=== PATIENT | female | born 1990 | race Two or more races ===

== ENCOUNTER 2021-12-23 09:36 | Emergency (ER) | payer MEDICAID, SELFPAY ==
--- NOTE | ~2021-12-23 | US_ITS ---
EXAMINATION: US ABDOMEN COMPLETE CLINICAL INFORMATION: Upper abdominal pain, nausea and vomiting. COMPARISON: None TECHNIQUE: Real-time imaging of the abdominal viscera. FINDINGS: PANCREAS: Normal. ABDOMINAL AORTA: The proximal, mid, and distal segments are normal in caliber. INFERIOR VENA CAVA: Visualized portions are normal. LIVER: Normal. The liver is normal in size. The liver contour is normal. Parenchymal echogenicity is normal. No focal hepatic lesion. There is no intrahepatic biliary duct dilatation seen. GALLBLADDER: Normal. The gallbladder is physiologically distended without evidence of stones, sludge, polyps, wall thickening or pericholecystic fluid. COMMON BILE DUCT: Normal in caliber measuring 0.2 cm in diameter. RIGHT KIDNEY: Normal. No hydronephrosis. No renal calculi or focal parenchymal lesions. The kidney measures 10.4 cm in maximum dimension. LEFT KIDNEY: Normal. No hydronephrosis. No renal calculi or focal parenchymal lesions. The kidney measures 9.1 cm in maximum dimension. SPLEEN: Normal. The spleen measures 9 cm in maximum dimension. FREE FLUID: None. US/US abdomen complete IMPRESSION: Unremarkable exam.
[2021-12-23 09:42] VITALS: BP 124/61; PULSE 100; RESP 16; TEMP 37.2; O2SAT 100; BMI 24.5
--- NOTE | 2021-12-23 10:20 | ED_ITS ---
HPI - Nausea/Vomiting/Diarrhea General Chief complaint: Nausea/Vomiting/Diarrhea Stated complaint: vomiting/diarrhea/weakness Time Seen by Provider: 12/23/21 10:14 Source: patient and family Mode of arrival: ambulatory Limitations: no limitations History of Present Illness HPI Narrative: 31-year-old female with a past medical history of sickle cell anemia presenting to the ED with complaints of epigastric abdominal pain with associated nausea/ vomiting and watery diarrhea for the past few hours started overnight. She reports that yesterday she went to out and ate some nachos and no one else ate the nachos and since them she has not been feeling good. She believes possible food poisoning. She reports associated chills. She is currently on her menstrual. At this time. She denies any measured fevers, dizziness, headaches, neck pain/ stiffness, sore throat, loss of taste or smell, nasal congestion / rhinorrhea, cough, chest pain or shortness of breath, dyspnea on exertion, orthopnea, palpitations, lower extremity edema or calf tenderness, paresthesias, radiation of the abdominal pain, back pain, dysuria, abnormal vaginal discharge, black or bloody stools, mucousy diarrhea, recent antibiotic usage or hospitalization, recent travel or sick contacts or any other symptoms complaints or concerns at this time. MD elicited complaint: nausea, vomiting, diarrhea and abdominal pain Pertinent past history: other ( Sickle cell anemia) Onset (ago): hour(s) ( since overnight) Description of vomiting: food contents, watery and bilious Description of diarrhea: watery Associated nausea: Yes Associated abdominal pain: Yes Location of pain: epigastric Radiation: does not radiate Pain consistency: constant Severity: moderate Quality: cramping Exacerbating factors: none Relieving factors: none Context: possible food poisoning Associated symptoms: fever/chills Related Data Previous Rx's Medication Instructions Recorded dicyclomine 20 mg tablet 20 mg PO BID #14 tab 12/23/21 ondansetron 4 mg disintegrating 4 mg PO Q6-8H PRN #14 tab 12/23/21 tablet Allergies Allergy/AdvReac Type Severity Reaction Status Date / Time No Known Allergies Allergy Verified 12/23/21 09:41 Review of Systems Review of Systems: Constitutional : No Fever, + Chills, No Night Sweats, No Fatigue, No Malaise Cardiovascular : No Chest Pain, No SOB Respiratory : No Cough, No Sputum, No Wheezing, No Dyspnea Gastrointestinal : + Nausea, + Vomiting, + Diarrhea, + abdominal Pain, No Hematochezia, No Melena Genitourinary : No irregular bleeding, No Dysuria, No Urinary Frequency, No Hematuria,No Urinary Incontinence, No Urgency, No Flank Pain Musculoskeletal : No joint pain, No Myalgias, No Joint Swelling Skin : No Skin Lesions, No rash Neuro : No Weakness, No Numbness, No Paresthesias, No Loss of Consciousness, No Dizziness, No Headache Heme/Lymph: No Lymphadenopathy Endocrine : No Temperature Intolerance Yes all other systems are reviewed and are negative Gastrointestinal: Gastrointestinal: Reports nausea PMFSH Past Medical History Attestation statement: The following information was validated with the patient. Medical History Sickle cell anemia Social History Social History Advance Directives: No Patient : No Physical Exam Vital Signs: Vital Signs: Last Vital Signs Temp 98.9 F 12/23/21 09:42 Pulse 100 12/23/21 09:42 Resp 16 12/23/21 09:42 BP 124/61 12/23/21 09:42 Pulse Ox 100 12/23/21 09:42 BMI result Body Mass Index 24.5 vital signs have been reviewed as normal and appeared to be correct. Blood pressure normal. Heart rate normal. Respiration rate normal. Temperature normal. Oxygen saturation normal. Appearance: Alert. Oriented X3. No acute distress. Head: Normal external exam. Normocephalic. Eyes: PERRLA. EOMI. Conjunctiva and sclera normal. Eyelids normal. ENT: Pharynx normal. Uvula midline. Moist mucous membranes. No trismus noted. No drooling noted. No muffled voice noted. Neck: Normal inspection. Neck supple. FROM. No adenopathy. No meningeal signs. CVS: Normal heart rate and rhythm. Heart sound normal. No murmurs noted. Pulses normal throughout. Respiratory: No respiratory distress. Painless inspiration. Breath sounds normal. No wheezes/rales/rhonchi noted. Chest nontender. No accessory muscle usage noted or decreased air movement noted. Abdomen: Soft and mild TTP to Epigastric abdominal area. Nondistended. No guarding. No rigidity. Bowel sounds normal in all 4 quadrants. No distention noted. No organomegaly noted. No visible injury noted. No rebound tenderness. Negative Rovsing sign. Negative obturator's sign. Negative psoas sign. Negative Bryant sign. Back: No CVA tenderness. Full range of motion noted. Skin: Skin warm and dry. Normal skin color. Normal skin turgor. No rashes/lesions/lacerations noted. Extremities: Extremities exhibit normal range of motion. Extremities nontender. Neuro: Oriented X 3. No motor deficit. No sensory deficit. Reflexes normal. Normal steady gait. CN's II-XII intact bilaterally? Course Course Course Narrative: 10:20am - 31-year-old female with a past medical history of sickle cell anemia presenting to the ED with complaints of epigastric abdominal pain with associated nausea/ vomiting and watery diarrhea for the past few hours started overnight. She reports that yesterday she went to out and ate some nachos and no one else ate the nachos and since them she has not been feeling good. She believes possible food poisoning. She reports associated chills. She is currently on her menstrual period at this time. Plan: Labs, UA, UHCG. provide a L of IV fluids, 4 mg of Zofran and 30 mg of IV Toradol an abdominal ultrasound then re-evaluate. Reevaluation(s) Reevaluation #1: - Labs reviewed patient with an elevated white blood cell count at 12,000. - anemia with an H&H of 8.1/27.7 patient reports that she has been as low as 4 and needed blood transfusion when she was in a sickle cell crisis today she denies any chest pain or shortness of breath or any symptoms of sickle cell crisis. - Platelet count 584. otherwise all other labs are within normal limits. - Patient negative for COVID and flu. - Abdominal ultrasound within normal limits no acute processes are noted - Patient was reporting some nausea therefore 10 mg of Reglan will be given due to the Zofran gave her minimal affect. Reports her epigastric pain is completely resolved after the Toradol. - Will attempt a p.o. trial if patient is tolerating p.o. fluids/ solids will DC home with symptomatic treatment for viral syndrome/ gastroenteritis and instructions return if any new or worsening symptoms. Patient understands agrees with this plan. Time: 12:09 [facility] - Nausea/Vomiting/Diarrhea Medical Records Attestation: I reviewed the patient's medical records. Lab Data Attestation: I reviewed the patient's lab results. Result diagrams: 12/23/21 10:36 12/23/21 11:20 Labs: Lab Results 12/23/21 12/23/21 12/23/21 Range/Units 10:28 10:30 10:36 WBC 12.6 H (4.8-10.8) X10*3/uL RBC 4.68 (4.20-5.50) X10*6/uL Hgb 8.1 L (12.0-16.0) g/dl Hct 27.2 L (37.0-47.0) % MCV 58.1 L (80.0-98.0) fL MCH 17.3 L (27.0-33.0) pg MCHC 29.8 L (31.0-35.0) g/dl RDW 17.7 H (11.0-16.0) % Plt Count 584 H (160-400) X10*3/uL MPV 9.6 (9.4-12.3) fL Immature Gran % (Auto) 0.4 (0.0-0.4) % Neut % (Auto) 95.2 H (45-73) % Lymph % (Auto) 2.2 L (20-40) % Spencer % (Auto) 2.0 (2-11) % Eos % (Auto) 0.0 (0-4) % Baso % (Auto) 0.2 (0-2) % Lymph # (Auto) 0.3 L (1.2-4.9) X10*3/uL Spencer # (Auto) 0.3 (0.1-1.2) X10*3/uL Eos # (Auto) 0.0 (0.0-0.4) X10*3/uL Baso # (Auto) 0.0 (0.0-0.2) X10*3/uL Abs Immat Gran (auto) 0.05 H (0.00-0.03) X10*3/uL Absolute Neuts (auto) 12.0 H (2.0-8.3) x10*3/uL Absolute Nucleated RBC 0.000 (0.0-0.012) X10*3/uL Nucleated RBC % (auto) 0.0 (0.0-0.2) /100WBC Smear Tech's Comments VERIFIED PT (9.9-13.0) SEC INR (0.9-1.1) D-Dimer High Sensitivty Sodium (135-145) mmol/L Potassium (3.3-5.1) mmol/L Chloride (96-108) mmol/L Carbon Dioxide (22-29) mmol/L Anion Gap (12-20) BUN (9-16) mg/dL Creatinine (0.5-1.4) mg/dL Estim Creat Clear Calc Estimated GFR Random Glucose (60-115) mg/dL Calcium (8.4-10.2) mg/dL Magnesium (1.6-2.6) mg/dL Total Bilirubin (0.0-1.0) mg/dL AST (5-31) U/L ALT (0-31) U/L Alkaline Phosphatase (39-117) U/L Total Protein (6.5-8.0) g/dL Albumin (3.5-5.0) g/dL Lipase (8-78) U/L Beta HCG, Quant mIU/mL COVID-19 ([facility]) Negative (Negative) COVID-19 Clin Com See Note Influenza Type A ([facility]) Negative (Negative) Influenza Type B ([facility]) Negative (Negative) Influenza A & B Note See Note 12/23/21 12/23/21 Range/Units 10:36 11:20 WBC (4.8-10.8) X10*3/uL RBC (4.20-5.50) X10*6/uL Hgb (12.0-16.0) g/dl Hct (37.0-47.0) % MCV (80.0-98.0) fL MCH (27.0-33.0) pg MCHC (31.0-35.0) g/dl RDW (11.0-16.0) % Plt Count (160-400) X10*3/uL MPV (9.4-12.3) fL Immature Gran % (Auto) (0.0-0.4) % Neut % (Auto) (45-73) % Lymph % (Auto) (20-40) % Spencer % (Auto) (2-11) % Eos % (Auto) (0-4) % Baso % (Auto) (0-2) % Lymph # (Auto) (1.2-4.9) X10*3/uL Spencer # (Auto) (0.1-1.2) X10*3/uL Eos # (Auto) (0.0-0.4) X10*3/uL Baso # (Auto) (0.0-0.2) X10*3/uL Abs Immat Gran (auto) (0.00-0.03) X10*3/uL Absolute Neuts (auto) (2.0-8.3) x10*3/uL Absolute Nucleated RBC (0.0-0.012) X10*3/uL Nucleated RBC % (auto) (0.0-0.2) /100WBC Smear Tech's Comments PT 14.5 H (9.9-13.0) SEC INR 1.3 H (0.9-1.1) D-Dimer High Sensitivty Cancelled Sodium 140 (135-145) mmol/L Potassium 3.7 (3.3-5.1) mmol/L Chloride 108 (96-108) mmol/L Carbon Dioxide 22 (22-29) mmol/L Anion Gap 14 (12-20) BUN 11 (9-16) mg/dL Creatinine 0.71 (0.5-1.4) mg/dL Estim Creat Clear Calc 94.7 Estimated GFR > 60 Random Glucose 114 (60-115) mg/dL Calcium 8.8 (8.4-10.2) mg/dL Magnesium 1.9 (1.6-2.6) mg/dL Total Bilirubin 0.8 (0.0-1.0) mg/dL AST 14 (5-31) U/L ALT 19 (0-31) U/L Alkaline Phosphatase 73 (39-117) U/L Total Protein 7.5 (6.5-8.0) g/dL Albumin 4.2 (3.5-5.0) g/dL Lipase 9 (8-78) U/L Beta HCG, Quant < 2 mIU/mL COVID-19 ([facility]) (Negative) COVID-19 Clin Com Influenza Type A ([facility]) (Negative) Influenza Type B ([facility]) (Negative) Influenza A & B Note Imaging Data Abdominal ultrasound: Attestation: I personally reviewed and interpreted this imaging study as follows: Radiologist's impression: FINDINGS: PANCREAS: Normal. ABDOMINAL AORTA: The proximal, mid, and distal segments are normal in caliber. INFERIOR VENA CAVA: Visualized portions are normal. LIVER: Normal. The liver is normal in size. The liver contour is normal. Parenchymal echogenicity is normal. No focal hepatic lesion. There is no intrahepatic biliary duct dilatation seen. GALLBLADDER: Normal. The gallbladder is physiologically distended without evidence of stones, sludge, polyps, wall thickening or pericholecystic fluid. COMMON BILE DUCT: Normal in caliber measuring 0.2 cm in diameter. RIGHT KIDNEY: Normal. No hydronephrosis. No renal calculi or focal parenchymal lesions. The kidney measures 10.4 cm in maximum dimension. LEFT KIDNEY: Normal. No hydronephrosis. No renal calculi or focal parenchymal lesions. The kidney measures 9.1 cm in maximum dimension. SPLEEN: Normal. The spleen measures 9 cm in maximum dimension. FREE FLUID: None. US/US abdomen complete IMPRESSION: Unremarkable exam. Discharge Plan Discharge Clinical Impression: Nausea vomiting and diarrhea, Abdominal pain, epigastric, Acute viral syndrome Patient Disposition: Home, Self-Care Instructions: Gastroenteritis (ED), Acute Nausea and Vomiting (ED), Acute Diarrhea (ED) Prescriptions: New ondansetron 4 mg tablet,disintegrating 4 mg PO Q6-8H PRN (Reason: nausea and vomiting) Qty: 14 0RF dicyclomine 20 mg tablet 20 mg PO BID Qty: 14 0RF Referrals: Sarah Euceda MD [Primary Care Provider] - 2 days (your pcp) Stand Alone Forms: Work/School Release Print Language: Greek
[2021-12-23 10:43] LABS: Basophils Percent Auto 0.2 % (0-2); Hematocrit 27.2 % (37.0-47.0); Hemoglobin 8.1 g/dl (12.0-16.0); Imm Gran Abs Auto 0.05 X10*3/uL (0.00-0.03); Imm Gran Pct Auto 0.4 % (0.0-0.4); Lymphocytes Absolute Auto 0.3 X10*3/uL (1.2-4.9); Lymphocytes Percent Auto 2.2 % (20-40); MANUAL DIFF FLAG SCAN; Mean Corpuscular HGB Conc 29.8 g/dl (31.0-35.0); Mean Corpuscular Hemoglobin 17.3 pg (27.0-33.0); Mean Platelet Volume 9.6 fL (9.4-12.3); Monocytes Absolute Auto 0.3 X10*3/uL (0.1-1.2); Neutrophils Percent Auto 95.2 % (45-73); Platelet Count 584 X10*3/uL (160-400); Red Blood Count 4.68 X10*6/uL (4.20-5.50); Red Cell Distribution Width 17.7 % (11.0-16.0); SCAN SMEAR FLAG 1; White Blood Count 12.6 X10*3/uL (4.8-10.8)
[2021-12-23] MEDS: ondansetron HCL 4 MG/2 ML VIAL IVPUSH (10:44)
[2021-12-23] MEDS: Ketorolac Tromethamine 30 MG/ML VIAL IVPUSH (10:44)
[2021-12-23 10:46] LABS: Mean Corpuscular Volume 58.1 fL (80.0-98.0)
[2021-12-23] MEDS: 0.9 % Sodium Chloride 1,000 ML 999 ML IVCONT (10:48)
[2021-12-23 10:49] LABS: INTERNATIONAL NORM RATIO 1.3 (0.9-1.1); Prothrombin Time 14.5 SEC (9.9-13.0)
[2021-12-23 10:59] LABS: Influenza A Negative (Negative); Influenza B2 Negative (Negative)
[2021-12-23 11:08] LABS: COVID-19 Test Negative (Negative); IDNOW Serial# 16C4AD1C
[2021-12-23 11:14] LABS: SLIDE REVIEW VERIFIED
[2021-12-23 11:46] LABS: Alanine Aminotransferase 19 U/L (0-31); Albumin Level 4.2 g/dL (3.5-5.0); Alkaline Phosphatase 73 U/L (39-117); Anion Gap 14 (12-20); Aspartate Amino Transferase 14 U/L (5-31); Bilirubin Total 0.8 mg/dL (0.0-1.0); Blood Urea Nitrogen 11 mg/dL (9-16); Calcium 8.8 mg/dL (8.4-10.2); Carbon Dioxide 22 mmol/L (22-29); Chloride 108 mmol/L (96-108); Creatinine Clr Calc Pharmacy 94.7; Estimated Glomerular Filt Rate > 60; Glucose Random 114 mg/dL (60-115); Magnesium 1.9 mg/dL (1.6-2.6); Potassium 3.7 mmol/L (3.3-5.1); Sodium 140 mmol/L (135-145); Total Protein 7.5 g/dL (6.5-8.0)
[2021-12-23 11:52] LABS: HCG Quantitative < 2 mIU/mL
[2021-12-23] MEDS: Metoclopramide HCl 10 MG/2 ML VIAL IVPUSH (12:05)
[2021-12-23 12:37] LABS: Lipase 9 U/L (8-78)
== END 2021-12-23 13:11 | disposition home or self-care (01) ==
PROVIDERS: Physician Assistant Medical; Emergency Provider Emergency Medicine; PCP Internal Medicine
DX: B34.9 Viral infection, unspecified (principal); R11.2 Nausea with vomiting, unspecified; R19.7 Diarrhea, unspecified; R10.13 Epigastric pain; Z20.822 Contact with and (suspected) exposure to COVID-19; Z79.899 Other long term (current) drug therapy
CPT/HCPCS: 76700; 80053; 83690; 83735; 84702; 85025; 85610; 87502; 87635; 96374; 96376; 99284; J1885; J2405; J2765

== ENCOUNTER 2022-12-03 10:28 | Emergency (ER) | payer MEDICAID, SELFPAY ==
[2022-12-03 10:50] VITALS: BP 119/70; PULSE 87; RESP 18; TEMP 36.8; O2SAT 99; BMI 24.5
[2022-12-03 10:58] LABS: MANUAL DIFF FLAG NO
[2022-12-03 10:59] LABS: Basophils Percent Auto 0.1 % (0-2); Eosinophils Percent Auto 0.2 % (0-4); Hematocrit 26.6 % (37.0-47.0); Hemoglobin 7.9 g/dl (12.0-16.0); Imm Gran Abs Auto 0.03 X10*3/uL (0.00-0.03); Imm Gran Pct Auto 0.3 % (0.0-0.4); Lymphocytes Absolute Auto 0.7 X10*3/uL (1.2-4.9); Lymphocytes Percent Auto 7.2 % (20-40); Mean Corpuscular HGB Conc 29.7 g/dl (31.0-35.0); Mean Corpuscular Hemoglobin 16.8 pg (27.0-33.0); Mean Platelet Volume 9.3 fL (9.4-12.3); Monocytes Absolute Auto 0.4 X10*3/uL (0.1-1.2); Monocytes Percent Auto 4.6 % (2-11); Neutrophils Percent Auto 87.6 % (45-73); Platelet Count 568 X10*3/uL (160-400); Red Blood Count 4.69 X10*6/uL (4.20-5.50); Red Cell Distribution Width 18.5 % (11.0-16.0); White Blood Count 9.1 X10*3/uL (4.8-10.8)
[2022-12-03 11:05] LABS: Mean Corpuscular Volume 56.7 fL (80.0-98.0)
[2022-12-03 11:13] LABS: COVID-19 Test Negative (Negative); IDNOW Serial# 16C4AD1C
[2022-12-03 11:25] LABS: HCG Quantitative < 2 mIU/mL
[2022-12-03 11:31] LABS: Alanine Aminotransferase 27 U/L (0-31); Albumin Level 4.4 g/dL (3.5-5.0); Alkaline Phosphatase 82 U/L (39-117); Anion Gap 13 (12-20); Aspartate Amino Transferase 25 U/L (5-31); Bilirubin Total 0.7 mg/dL (0.0-1.0); Blood Urea Nitrogen 12 mg/dL (9-16); Calcium 9.1 mg/dL (8.4-10.2); Carbon Dioxide 22 mmol/L (22-29); Chloride 107 mmol/L (96-108); Creatinine Clr Calc Pharmacy 91.2; Estimated Glomerular Filt Rate > 60; Glucose Random 100 mg/dL (60-115); Potassium 4.1 mmol/L (3.3-5.1); Sodium 138 mmol/L (135-145); Total Protein 7.8 g/dL (6.5-8.0)
--- NOTE | 2022-12-03 14:11 | ED.GENADULT ---
HPI - General Adult General Chief complaint: Abdominal Pain Stated complaint: N/V/D Time Seen by Provider: 12/03/22 14:10 Source: patient Mode of arrival: ambulatory Limitations: no limitations History of Present Illness HPI narrative: Pt is a 32 y/o female with no significant pMHX, cc n/v/d with abd pain that started around 0100 this morning. It was preceded by a headache that has since subsided. She had chills and night sweats that started at 0300 but did not check her temperature at that time. 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 She has not been able to eat or drink anything since this started and is currently on her period. Pt denies sob, chest pain, cough, or blood in stools. Onset (ago): hour(s) (12) Location: abdomen Radiation: non-radiation Severity: moderate Severity scale (1-10): 4 Quality: aching Pain Consistency: constant Relieving factors: none Exacerbating factors: none Associated symptoms: nausea/vomiting Treatments prior to arrival: none Related Data Previous Rx's Medication Instructions Recorded dicyclomine 20 mg tablet 20 mg PO BID abdominal cramping 12/23/21 #14 tabs ondansetron 4 mg disintegrating 4 mg PO Q6-8H PRN nausea and 12/23/21 tablet vomiting #14 tabs cephalexin 500 mg capsule 500 mg PO Q6H 7 days #28 caps 12/03/22 ondansetron 4 mg disintegrating 4 mg PO Q8H 3 days #9 tabs 12/03/22 tablet Allergies Allergy/AdvReac Type Severity Reaction Status Date / Time No Known Allergies Allergy Verified 12/23/21 09:41 Review of Systems Constitutional: Constitutional: Reports no additional constitutional complaints, Reports chills and Denies fever(s) Eyes: Eyes: Reports no additional eye complaints, Denies blurry vision, Denies change in vision, Denies diplopia, Denies eye discharge, Denies loss of vision and Denies eye pain ENT: Denies dizziness Cardiovascular: Cardiovascular: Reports no additional cardiovascular complaints, Denies chest pain, Denies lightheadedness, Denies Loss of Consciousness and Denies dyspnea Respiratory: Respiratory: Reports no additional respiratory complaints and Denies dyspnea Gastrointestinal: Gastrointestinal: Reports no additional gastrointestinal complaints, Reports abdominal pain, Denies melena, Denies hematochezia, Denies change in bowel habits and Denies change in stool character Genitourinary: Genitourinary: Denies hematuria, Denies urinary frequency, Denies dysuria, Denies urinary incontinence, Denies urinary hesitancy and Denies urinary urgency Musculoskeletal: Musculoskeletal: Reports no additional musculoskeletal complaints, Denies numbness and Denies tingling Neurologic: Denies dizziness, Denies loss of vision, Denies numbness and Denies tingling Psychiatric: Psychiatric: Reports no additional psychiatric complaints Endocrine: Endocrine: Reports no additional endocrine complaints Hematologic/Lymphatic: Hematologic/Lymphatic: Reports no additional hematologic/lymphatic complaints Allergic/Immunologic: Allergic/Immunologic: Reports no additional allergic/immunologic complaints [facility] Past Medical History Attestation statement: The following information was validated with the patient. Source: old records reviewed and nursing notes reviewed Medical History Sickle cell anemia Social History Social History Smoked in Last 30 Days: No Use of substances other than those prescribed or required for medical reasons: No Advance Directives: No Advance Directives Information Provided: No Physical Exam ED Vital Signs: Vital Signs - 24 hr 12/03/22 10:50 12/03/22 14:53 12/03/22 16:00 Temperature 98.3 F 98.7 F 98.4 F Pulse Rate 87 82 87 Respiratory Rate 18 16 16 Blood Pressure 119/70 111/58 L 117/65 Pulse Oximetry 99 100 100 Oxygen Delivery Method Room Air Room Air Room Air BMI result Body Mass Index 24.5 Const General: cooperative, no acute distress, alert and awake Nutritional Appearance: well nourished Orientation/consciousness: patient oriented x3 Limitations: no limitations HENMT Head: Yes normal to inspection and Yes atraumatic Ears: hearing grossly normal bilaterally and external ears normal General nose exam: Normal external nose present, no nasal discharge noted and no epistaxis Face and sinus: Yes normal facial exam, No abrasion and No laceration Mouth: Normal oral and palatal mucosa present, no drooling and no muffled voice Eyes General: appearance normal, both eyes and all related structures Periorbital: periorbital findings normal Eyelids: Yes eyelids normal Conjunctivae: conjunctivae normal Pupils: Equal, round and reactive pupils present EOM: EOMs intact bilaterally Neck Neck: Yes normal visual inspection, Yes full ROM and Yes no lymphadenopathy Chest Chest palpation & inspection: normal inspection of the chest Resp Effort & Inspection: normal respiratory effort and able to speak in complete sentences Auscultation: clear to auscultation bilaterally Cardio Rate: regular rate Rhythm: regular rhythm GI Inspection: Yes normal to inspection Palpation (GI): Soft to palpation, not firm, Tenderness to palpation present (GI) in the epigastrum and in the LUQ, no guarding and not rigid Auscultation: normal bowel sounds Neuro General: patient oriented x3 and moves all extremities Cranial nerves: Yes Equal, round and reactive pupils present Cognition (Neuro): normal cognition Motor exam (neuro): 5/5 motor strength present throughout Sensory Exam: Normal double simultaneous stimulation for sensation Coordination: [id number] test normal Extrem General: Yes normal to inspection, Yes full ROM and Yes capillary refill normal Psych Appearance: grossly normal Mental Status: mental status grossly normal Affect: normal affect Attitude: cooperative Thought process: Normal thought process present Thought content: Normal thought content present Insight: Good insight present (Psych) Medications Administered Discontinued Medications Generic Name Dose Route Start Last Admin Trade Name Freq PRN Reason Stop Dose Admin Sodium Chloride 1,000 mls @ 999 mls/hr 12/03/22 14:30 12/03/22 14:45 Ns IV 12/03/22 15:30 999 mls/hr .Q1H1M ANGEL Administration Ondansetron HCl 4 mg 12/03/22 14:24 12/03/22 14:45 Ondansetron Hcl 4 Mg/2 Ml Vial IVPUSH 12/03/22 14:25 4 mg ONCE ONE Administration Medical Decision Making Medical Decision Making [facility] Narrative: Patient is a 32 year old assigned female at with a history no reported medical history presenting to the emergency department today with nausea, vomiting, diarrhea, and abdominal pain. Patient's physical exam showed minimal abdominal pain with palpation but was otherwise unremarkable. Patient's blood work was unremarkable. Patient's urine showed an acute infection. Patient's urine results were incorrectly input in to the computer and lab staff had to read me the results over the phone to include 2+ nitrites, 1+ bacteria, and 25-50 WBC. I explained my physical exam findings as well as all test results to the patient. I answered all questions asked by the patient. Patient received IV fluids and Zofran which she stated helped her symptoms significantly. I stressed the importance of the patient taking her medication as prescribed. I stressed the importance of the patient following up with her primary care provider. I stressed the importance of the patient returning to the emergency department immediately if her symptoms were to worsen or if she were to develop any dizziness, shortness of breath, difficulty breathing, chest pain, blurry vision, loss of vision, nausea, vomiting, abdominal pain, fever, chills, back pain, or any other complaints. Patient verbalized agreement and understanding with this treatment plan and discharge. Differential Diagnosis Differential Diagnoses: The differential diagnosis associated with the presentation includes UTI Lab Data MDM Lab Attestation statement: I reviewed the patient's lab results. 12/03/22 10:54 12/03/22 10:54 Labs: Lab Results 12/03/22 12/03/22 12/03/22 Range/Units 10:54 10:54 10:54 WBC 9.1 (4.8-10.8) X10*3/uL RBC 4.69 (4.20-5.50) X10*6/uL Hgb 7.9 L (12.0-16.0) g/dl Hct 26.6 L (37.0-47.0) % MCV 56.7 L (80.0-98.0) fL MCH 16.8 L (27.0-33.0) pg MCHC 29.7 L (31.0-35.0) g/dl RDW 18.5 H (11.0-16.0) % Plt Count 568 H (160-400) X10*3/uL MPV 9.3 L (9.4-12.3) fL Immature Gran % (Auto) 0.3 (0.0-0.4) % Neut % (Auto) 87.6 H (45-73) % Lymph % (Auto) 7.2 L (20-40) % [place] % (Auto) 4.6 (2-11) % Eos % (Auto) 0.2 (0-4) % Baso % (Auto) 0.1 (0-2) % Lymph # (Auto) 0.7 L (1.2-4.9) X10*3/uL [place] # (Auto) 0.4 (0.1-1.2) X10*3/uL Eos # (Auto) 0.0 (0.0-0.4) X10*3/uL Baso # (Auto) 0.0 (0.0-0.2) X10*3/uL Abs Immat Gran (auto) 0.03 (0.00-0.03) X10*3/uL Absolute Neuts (auto) 8.0 (2.0-8.3) x10*3/uL Absolute Nucleated RBC 0.000 (0.0-0.012) X10*3/uL Nucleated RBC % (auto) 0.0 (0.0-0.2) /100WBC Sodium 138 (135-145) mmol/L Potassium 4.1 (3.3-5.1) mmol/L Chloride 107 (96-108) mmol/L Carbon Dioxide 22 (22-29) mmol/L Anion Gap 13 (12-20) BUN 12 (9-16) mg/dL Creatinine 0.73 (0.5-1.4) mg/dL Estim Creat Clear Calc 91.2 Estimated GFR > 60 Random Glucose 100 (60-115) mg/dL Calcium 9.1 (8.4-10.2) mg/dL Total Bilirubin 0.7 (0.0-1.0) mg/dL AST 25 (5-31) U/L ALT 27 (0-31) U/L Alkaline Phosphatase 82 (39-117) U/L Total Protein 7.8 (6.5-8.0) g/dL Albumin 4.4 (3.5-5.0) g/dL Beta HCG, Quant < 2 mIU/mL Urine Color Urine Appearance Urine pH (5.0-9.0) Ur Specific [place] (1.005-1.025) Urine Protein (Neg-Trace) mg/dL Urine Glucose (UA) (Negative) mg/dL Urine Ketones (Negative) mg/dL Urine Blood (Negative) Urine Nitrite (Negative) Ur Leukocyte Esterase (Negative) Urine RBC (0-2) /HPF Urine WBC (0-5) /HPF Ur Squamous Epith Cells (0-2) /HPF Urine Bacteria (None Seen) Hyaline Casts (0-2) /LPF COVID-19 ([facility]) Negative (Negative) COVID-19 Clin Com See Note 12/03/22 Range/Units 15:17 WBC (4.8-10.8) X10*3/uL RBC (4.20-5.50) X10*6/uL Hgb (12.0-16.0) g/dl Hct (37.0-47.0) % MCV (80.0-98.0) fL MCH (27.0-33.0) pg MCHC (31.0-35.0) g/dl RDW (11.0-16.0) % Plt Count (160-400) X10*3/uL MPV (9.4-12.3) fL Immature Gran % (Auto) (0.0-0.4) % Neut % (Auto) (45-73) % Lymph % (Auto) (20-40) % [place] % (Auto) (2-11) % Eos % (Auto) (0-4) % Baso % (Auto) (0-2) % Lymph # (Auto) (1.2-4.9) X10*3/uL [place] # (Auto) (0.1-1.2) X10*3/uL Eos # (Auto) (0.0-0.4) X10*3/uL Baso # (Auto) (0.0-0.2) X10*3/uL Abs Immat Gran (auto) (0.00-0.03) X10*3/uL Absolute Neuts (auto) (2.0-8.3) x10*3/uL Absolute Nucleated RBC (0.0-0.012) X10*3/uL Nucleated RBC % (auto) (0.0-0.2) /100WBC Sodium (135-145) mmol/L Potassium (3.3-5.1) mmol/L Chloride (96-108) mmol/L Carbon Dioxide (22-29) mmol/L Anion Gap (12-20) BUN (9-16) mg/dL Creatinine (0.5-1.4) mg/dL Estim Creat Clear Calc Estimated GFR Random Glucose (60-115) mg/dL Calcium (8.4-10.2) mg/dL Total Bilirubin (0.0-1.0) mg/dL AST (5-31) U/L ALT (0-31) U/L Alkaline Phosphatase (39-117) U/L Total Protein (6.5-8.0) g/dL Albumin (3.5-5.0) g/dL Beta HCG, Quant mIU/mL Urine Color [place] A Urine Appearance Cloudy Urine pH 5.0 (5.0-9.0) Ur Specific [place] 1.025 (1.005-1.025) Urine Protein 100 (2+) H (Neg-Trace) mg/dL Urine Glucose (UA) Negative (Negative) mg/dL Urine Ketones 15 (Negative) mg/dL Urine Blood Large (3+) H (Negative) Urine Nitrite Negative (Negative) Ur Leukocyte Esterase Moderate (2+) H (Negative) Urine RBC >20 H (0-2) /HPF Urine WBC >50 H (0-5) /HPF Ur Squamous Epith Cells 3-5 (0-2) /HPF Urine Bacteria 1+ (None Seen) Hyaline Casts 0-2 (0-2) /LPF COVID-19 ([facility]ASIA) (Negative) COVID-19 Clin Com Discharge Plan Discharge Clinical Impression: Urinary tract infection Patient Disposition: Home, Self-Care Instructions: Urinary Tract Infection in Women (ED) Additional Instructions: Follow up with your primary care provider. Return to the emergency department immediately if your symptoms worsen or if you develop any dizziness, shortness of breath, difficulty breathing, chest pain, blurry vision, loss of vision, nausea, vomiting, abdominal pain, fever, chills, back pain, or any other complaints. Prescriptions: New cephalexin 500 mg capsule 500 mg PO Q6H 7 Days Qty: 28 0RF ondansetron 4 mg tablet,disintegrating 4 mg PO Q8H 3 Days Qty: 9 0RF No Action ondansetron 4 mg tablet,disintegrating 4 mg PO Q6-8H PRN (Reason: nausea and vomiting) Qty: 14 0RF dicyclomine 20 mg tablet 20 mg PO BID Qty: 14 0RF Referrals: [facility] [Primary Care Provider] - Stand Alone Forms: Work/School Release Interventions: ED Discharge Assessment Last Done: 12/03/22 17:05 Print Language: Cook Islander
[2022-12-03] MEDS: 0.9 % Sodium Chloride 1,000 ML 999 ML IV (14:45)
[2022-12-03] MEDS: ondansetron HCL 4 MG/2 ML VIAL IVPUSH (14:45)
[2022-12-03 14:53] VITALS: BP 111/58; PULSE 82; RESP 16; TEMP 37.1; O2SAT 100
[2022-12-03 15:41] LABS: Bacteria Urine 1+ (None Seen); Hyaline Casts Urine 0-2 /LPF (0-2); RBC Urine >20 /HPF (0-2); WBC Urine >50 /HPF (0-5)
[2022-12-03 16:00] VITALS: BP 117/65; PULSE 87; RESP 16; TEMP 36.9; O2SAT 100
[2022-12-03 16:10] LABS: Appearance Urine Cloudy; Color Urine Orange; Glucose Urine UA Negative (Negative); Leukocyte Esterase Urine Moderate (2+) (Negative); Nitrite Urine Negative (Negative); Specific Gravity - Urine 1.025 (1.005-1.025); UACC Culture Trigger YES; UMIC TRIGGER UACC YES; Urine Blood Large (3+) (Negative); Urine Ketones 15 mg/dL (Negative); Urine Protein 100 (2+) mg/dL (Neg-Trace)
== END 2022-12-03 17:36 | disposition home or self-care (01) ==
PROVIDERS: Emergency Provider Emergency Medicine
DX: N39.0 Urinary tract infection, site not specified (principal); Z20.828 Contact with and (suspected) exposure to other viral communicable diseases; Z20.822 Contact with and (suspected) exposure to COVID-19; Z79.899 Other long term (current) drug therapy
CPT/HCPCS: 80053; 81001; 84702; 85025; 87086; 87635; 96361; 96374; 99284; J2405

== ENCOUNTER 2023-04-28 20:17 | Emergency (ER) | payer MEDICAID, SELFPAY ==
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
[2023-04-28 20:39] VITALS: BP 145/56; PULSE 101; RESP 18; TEMP 36.9; O2SAT 100; BMI 24.6
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
[2023-04-28] MEDS: Ketorolac Tromethamine 15 MG/ML VIAL 30 MG IM (21:36)
== END 2023-04-28 22:38 | disposition home or self-care (01) ==
PROVIDERS: Emergency Provider Internal Medicine
DX: S16.1XXA Strain of muscle, fascia and tendon at neck level, initial encounter (principal); V43.52XA Car driver injured in collision with other type car in traffic accident, initial encounter; Y93.89 Activity, other specified; Y92.414 Local residential or business street as the place of occurrence of the external cause; Y99.9 Unspecified external cause status
CPT/HCPCS: 72040; 73030; 96372; 99283; 99284; J1885

== ENCOUNTER 2023-11-20 11:28 | Emergency (ER) | payer MEDICAID, SELFPAY ==
--- NOTE | ~2023-11-20 | US_ITS ---
EXAMINATION: US PELVIS CLINICAL INFORMATION: Pelvic pain and vaginal bleeding. COMPARISON: Previous pelvic ultrasound most recent January 2017. TECHNIQUE: Ultrasound of the pelvis is performed using both transabdominal and transvaginal transducers along with Doppler. Transvaginal imaging is performed due to inadequate visualization transabdominally. FINDINGS: The uterus is anteverted and measures 10 x 7 x 7 cm. There are at least 5 uterine fibroids. largest fibroids measure 4.8 x 3.6 x 4 cm exophytic to the uterine fundus and 4.2 x 3.6 x 3.4 cm subserosal to the posterior uterine body. The endometrium is normal in thickness measuring 0.5 cm. The right ovary measures 3.8 x 2. 4 x 3.2 cm. There is a 1.3 x 1 x 1 cm hypoechoic lesion in the right ovary. It is uncertain whether this represents a complex cyst or solid lesion. The left ovary measures 3.3 x 2.5 x 2.5 cm. There is a 2.5 x 1.8 x 1.9 cm complex left ovarian cyst with internal echoes. There is no fluid in the pelvis. US/US pelvic and transvaginal IMPRESSION: Enlarged fibroid uterus. Left ovarian complex cyst and question 1 x 1.3 cm right ovarian complex cyst versus solid hypoechoic lesion. Follow-up pelvic ultrasound in several months is recommended.
[2023-11-20 11:55] VITALS: BP 132/73; PULSE 77; RESP 20; TEMP 36.6; O2SAT 100; BMI 24.5
--- NOTE | 2023-11-20 11:57 | ED_ITS ---
HPI - Female Genitourinary General Chief complaint: Vaginal Bleeding Stated complaint: Vaginal bleeding 1 month Time Seen by Provider: 11/20/23 20:39 Source: patient Mode of arrival: ambulatory Limitations: no limitations History of Present Illness HPI Narrative: Patient has sickle cell trait with chronic anemia usually have regular. For last 1 month patient has been having irregular periods off and on changing 4-5 pads a day menstruation started on 10/26 ended on 11/01 started again on 11/09 feels weak and dizzy with lower abdominal cramps not on any BCP Related Data Previous Rx's Medication Instructions Recorded dicyclomine 20 mg tablet 20 mg PO BID abdominal cramping 12/23/21 #14 tabs ondansetron 4 mg disintegrating 4 mg PO Q6-8H PRN nausea and 12/23/21 tablet vomiting #14 tabs cephalexin 500 mg capsule 500 mg PO Q6H 7 days #28 caps 12/03/22 ondansetron 4 mg disintegrating 4 mg PO Q8H 3 days #9 tabs 12/03/22 tablet desogestrel 0.15 mg-ethinyl 1 tab PO DAILY #168 tabs 11/20/23 estradiol 0.03 mg tablet (Pradeep) ferrous sulfate 324 mg (65 mg 324 mg PO DAILY #90 tabs 11/20/23 iron) tablet,delayed release Allergies Allergy/AdvReac Type Severity Reaction Status Date / Time amoxicillin [From Augmentin] Allergy Hives Verified 11/20/23 11:55 clavulanic acid Allergy Hives Verified 11/20/23 11:55 [From Augmentin] Review of Systems 2 Review of Systems: Yes all other systems are reviewed and are negative [facility] Past Medical History Medical History Sickle cell anemia Physical Exam 2 Vital Signs: Vital Signs: Last Vital Signs Temp 98 F 11/20/23 23:11 Pulse 79 11/20/23 23:11 Resp 18 11/20/23 23:11 BP 142/76 H 11/20/23 23:11 Pulse Ox 99 11/20/23 23:11 O2 Del Method Room Air 11/20/23 23:11 BMI result Body Mass Index 24.5 Appearance: Alert. Oriented X3. No acute distress. Eyes: Pallor+ ENT: Pharynx normal. Oral Mucosa moist Neck: Normal inspection. Neck supple. CVS: Normal heart rate and rhythm. Pulses normal. Respiratory: No respiratory distress. Equal air entry bilateral, no wheezing/rales/rhonchi Abdomen: Soft suprapubic tenderness patient on the left side no guarding or rebound tenderness Bowel sounds are present, no mass palpable, no CVA tenderness Skin: Skin warm and dry. Normal skin color. Normal skin turgor. Extremities: No lower extremity edema. No calf tenderness Neuro: Oriented X 3. Course Course Course Narrative: This is a rapid medical exam. Deferred additional HPI, ROS, PE to primary provider. 33 yo female with history of sickle cell anemia here with intermittent vaginal bleeding x 1 month. 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 11/20/23 12:18 11/20/23 12:18 Labs: Lab Results 11/20/23 11/20/23 11/20/23 Range/Units 12:18 14:42 14:43 WBC 7.6 (4.8-10.8) X10*3/uL RBC 4.67 (4.20-5.50) X10*6/uL Hgb 8.5 L (12.0-16.0) g/dl Hct 28.1 L (37.0-47.0) % MCV 60.2 L (80.0-98.0) fL MCH 18.2 L (27.0-33.0) pg MCHC 30.2 L (31.0-35.0) g/dl RDW 18.0 H (11.0-16.0) % Plt Count 581 H (160-400) X10*3/uL MPV 9.1 L (9.4-12.3) fL Immature Gran % (Auto) 0.4 (0.0-0.4) % Neut % (Auto) 69.3 (45-73) % Lymph % (Auto) 24.1 (20-40) % [place] % (Auto) 5.1 (2-11) % Eos % (Auto) 0.7 (0-4) % Baso % (Auto) 0.4 (0-2) % Lymph # (Auto) 1.8 (1.2-4.9) X10*3/uL [place] # (Auto) 0.4 (0.1-1.2) X10*3/uL Eos # (Auto) 0.1 (0.0-0.4) X10*3/uL Baso # (Auto) 0.0 (0.0-0.2) X10*3/uL Abs Immat Gran (auto) 0.03 (0.00-0.03) X10*3/uL Absolute Neuts (auto) 5.3 (2.0-8.3) x10*3/uL Absolute Nucleated RBC 0.000 (0.0-0.012) X10*3/uL Nucleated RBC % (auto) 0.0 (0.0-0.2) /100WBC PT 12.4 (11.1-13.3) SEC INR 1.0 (0.9-1.1) Sodium 140 (135-145) mmol/L Potassium 3.7 (3.3-5.1) mmol/L Chloride 107 (96-108) mmol/L Carbon Dioxide 24 (22-29) mmol/L Anion Gap 13 (12-20) BUN 7 L (9-16) mg/dL Creatinine 0.72 (0.5-1.4) mg/dL Estim Creat Clear Calc 91.5 Estimated GFR > 60 Random Glucose 93 (60-115) mg/dL Calcium 9.5 (8.4-10.2) mg/dL Total Bilirubin 0.3 (0.0-1.0) mg/dL Direct Bilirubin 0.1 (0.0-0.5) mg/dL AST 15 (5-31) U/L ALT 12 (0-31) U/L Alkaline Phosphatase 75 (39-117) U/L Total Protein 8.6 H (6.5-8.0) g/dL Albumin 4.5 (3.5-5.0) g/dL Urine Color Yellow Urine Appearance Clear Urine pH 6.0 (5.0-9.0) Ur Specific [place] 1.020 (1.005-1.025) Urine Protein Negative (Neg-Trace) mg/dL Urine Glucose (UA) Negative (Negative) mg/dL Urine Ketones Negative (Negative) mg/dL Urine Blood Large (3+) H (Negative) Urine Nitrite Negative (Negative) Ur Leukocyte Esterase Small (1+) H (Negative) Urine RBC 11-20 H (0-2) /HPF Urine WBC 6-10 H (0-5) /HPF Ur Squamous Epith Cells 3-5 (0-2) /HPF Urine Bacteria 1+ (None Seen) Hyaline Casts 0-2 (0-2) /LPF Urine Test NEGATIVE (NEGATIVE) Independent Interpretation I performed an independent interpretation of an: Ultrasound Interpretation: Bulky uterine fibroid Radiology Impression Discussion of test interpretation with radiology: I have reviewed the radiologist's reading. Discharge Plan Discharge Clinical Impression: Fibroid, uterine, Menorrhagia Patient Disposition: Home, Self-Care Instructions: Menorrhagia (ED) Additional Instructions: You have uterine fibroids that is likely causing the heavy bleeding Start taking control pills daily Follow up with gynecology Prescriptions: New desogestrel-ethinyl estradiol [Pradeep] 0.15-0.03 mg tablet 1 tab PO DAILY Qty: 168 0RF ferrous sulfate 324 mg (65 mg iron) tablet,delayed release (DR/EC) 324 mg PO DAILY Qty: 90 0RF No Action ondansetron 4 mg tablet,disintegrating 4 mg PO Q6-8H PRN (Reason: nausea and vomiting) Qty: 14 0RF dicyclomine 20 mg tablet 20 mg PO BID Qty: 14 0RF cephalexin 500 mg capsule 500 mg PO Q6H 7 Days Qty: 28 0RF ondansetron 4 mg tablet,disintegrating 4 mg PO Q8H 3 Days Qty: 9 0RF Interventions: ED Discharge Assessment Last Done: 11/20/23 23:13 Discharge Date/Time: 11/20/23 23:13
[2023-11-20 12:23] LABS: MANUAL DIFF FLAG NO
[2023-11-20 12:27] LABS: Basophils Percent Auto 0.4 % (0-2); Eosinophils Absolute Auto 0.1 X10*3/uL (0.0-0.4); Eosinophils Percent Auto 0.7 % (0-4); Hematocrit 28.1 % (37.0-47.0); Hemoglobin 8.5 g/dl (12.0-16.0); Imm Gran Abs Auto 0.03 X10*3/uL (0.00-0.03); Imm Gran Pct Auto 0.4 % (0.0-0.4); Lymphocytes Absolute Auto 1.8 X10*3/uL (1.2-4.9); Lymphocytes Percent Auto 24.1 % (20-40); Mean Corpuscular HGB Conc 30.2 g/dl (31.0-35.0); Mean Corpuscular Hemoglobin 18.2 pg (27.0-33.0); Mean Platelet Volume 9.1 fL (9.4-12.3); Monocytes Absolute Auto 0.4 X10*3/uL (0.1-1.2); Monocytes Percent Auto 5.1 % (2-11); Neutrophils Absolute Auto 5.3 x10*3/uL (2.0-8.3); Neutrophils Percent Auto 69.3 % (45-73); Platelet Count 581 X10*3/uL (160-400); Red Blood Count 4.67 X10*6/uL (4.20-5.50); White Blood Count 7.6 X10*3/uL (4.8-10.8)
[2023-11-20 12:28] LABS: Mean Corpuscular Volume 60.2 fL (80.0-98.0)
[2023-11-20 12:38] LABS: Prothrombin Time 12.4 SEC (11.1-13.3)
[2023-11-20 12:39] LABS: Alanine Aminotransferase 12 U/L (0-31); Albumin Level 4.5 g/dL (3.5-5.0); Alkaline Phosphatase 75 U/L (39-117); Anion Gap 13 (12-20); Aspartate Amino Transferase 15 U/L (5-31); Bilirubin Direct 0.1 mg/dL (0.0-0.5); Bilirubin Total 0.3 mg/dL (0.0-1.0); Blood Urea Nitrogen 7 mg/dL (9-16); Calcium 9.5 mg/dL (8.4-10.2); Carbon Dioxide 24 mmol/L (22-29); Chloride 107 mmol/L (96-108); Creatinine Clr Calc Pharmacy 91.5; Estimated Glomerular Filt Rate > 60; Glucose Random 93 mg/dL (60-115); Potassium 3.7 mmol/L (3.3-5.1); Sodium 140 mmol/L (135-145); Total Protein 8.6 g/dL (6.5-8.0)
[2023-11-20 14:53] LABS: Appearance Urine Clear; Color Urine Yellow; Glucose Urine UA Negative (Negative); Leukocyte Esterase Urine Small (1+) (Negative); Nitrite Urine Negative (Negative); UMIC TRIGGER UACC YES; Urine Blood Large (3+) (Negative); Urine Ketones Negative (Negative); Urine Protein Negative (Neg-Trace)
[2023-11-20 14:55] LABS: UPreg QC Valid YES; Urine Pregnancy NEGATIVE (NEGATIVE)
[2023-11-20 14:58] LABS: Bacteria Urine 1+ (None Seen); Hyaline Casts Urine 0-2 /LPF (0-2); UACC Culture Trigger YES
[2023-11-20 20:29] VITALS: BP 129/78; PULSE 79; RESP 16; TEMP 37.3; O2SAT 100
--- NOTE | 2023-11-20 20:30 | MHC.EDTECH ---
This pct just assumed care of Patient ,Vitals taken and Call lemus within Pt reach .
--- NOTE | 2023-11-20 21:34 | PC.NURSE ---
pt in ultrasound at this time
--- NOTE | 2023-11-20 21:43 | PC.NURSE ---
pt back from US
[2023-11-20 21:48] VITALS: BP 129/78; PULSE 77; RESP 16; TEMP 37; O2SAT 98
[2023-11-20 23:11] VITALS: BP 142/76; PULSE 79; RESP 18; TEMP 36.6; O2SAT 99
== END 2023-11-20 23:13 | disposition home or self-care (01) ==
PROVIDERS: Nurse Practitioner Family; Emergency Provider Internal Medicine
DX: D25.9 Leiomyoma of uterus, unspecified (principal); N92.0 Excessive and frequent menstruation with regular cycle; R42 Dizziness and giddiness; Z79.899 Other long term (current) drug therapy
CPT/HCPCS: 36415; 76830; 76856; 80048; 80076; 81001; 81025; 85025; 85610; 87086; 99284

== ENCOUNTER 2023-11-27 12:33 | Outpatient (REF) | payer MEDICAID, SELFPAY ==
[2023-12-04 11:39] LABS: HPV mRNA E6/E7 rflx Not Detected (Not Detected)
== END 2023-11-27 12:34 | disposition home or self-care (01) ==
LOC: HO.LNP 12:33
PROVIDERS: Visit Provider Obstetrics & Gynecology
DX: N93.9 Abnormal uterine and vaginal bleeding, unspecified (principal); N83.291 Other ovarian cyst, right side; N83.292 Other ovarian cyst, left side; Z32.02 Encounter for pregnancy test, result negative
CPT/HCPCS: 0353U; 36415; 81025; 84146; 84443; 84702; 85027; 87624; 88142; 99202

== ENCOUNTER 2023-11-27 12:33 | Outpatient (AMB) | payer MEDICAID, SELFPAY ==
--- NOTE | 2023-11-27 12:44 | A.OFFVIS_ITS ---
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 The patient went to the ER on 11/20 with heavy vaginal bleeding the following workup was done: H&H 8.02/23.1 Pelvic ultrasound showed the following: The uterus is anteverted and measures 10 x 7 x 7 cm. There are at least 5 uterine fibroids. largest fibroids alfredo sure 4.8 x 3.6 x 4 cm exophytic to the uterine fundus and 4.2 x 3.6 x 3.4 cm subserosal to the posterior uterine body. The endometrium is normal in thickness measuring 0.5 cm. The right ovary measures 3.8 x 2. 4 x 3.2 cm. There is a 1.3 x 1 x 1 cm hypoechoic lesion in the right ovary. It is uncertain whether this represents a complex cyst or solid lesion. The left ovary measures 3.3 x 2.5 x 2.5 cm. There is a 2.5 x 1.8 x 1.9 cm complex left ovarian cyst with internal echoes. There is no fluid in the pelvis Last Pap smear was in 05/17 was negative The patient was discharged on control pill and iron sulfate, since then her bleeding has resolved [facility] Medical History Sickle cell anemia Family History Maternal Aunt Breast cancer Female Reproductive History Menstrual Age of Menarche: 11 Duration of menses: 3-5 days Date of last menstrual period: 11/09/23 control method: pills Total pregnancies: 0 History of STI: No Review of Systems Const All systems reviewed & are unremarkable except as noted in HPI and below Card Reports as per HPI Resp Reports as per HPI GI Reports as per HPI and Reports no additional complaints Reports as per HPI Physical Exam Vital Signs: Last Vital Signs BP 122/78 11/27/23 12:45 BMI result Body Mass Index 24.7 Const General: cooperative, healthy appearing and comfortable Chest Chest palpation & inspection: normal inspection of the chest and normal palpation of entire chest wall Breast/axilla inspection: normal inspection of the breasts and normal inspection of the axillae Breast/axilla palpation: normal palpation of the breasts, normal palpation of the axillae and no axillary lymphadenopathy Resp Effort & Inspection: normal respiratory effort Auscultation: clear to auscultation bilaterally Percussion: percussion normal Cardio Palpation: normal PMI Rate: regular rate Rhythm: regular rhythm Heart sounds: no murmurs and no rubs Peripheral pulses: Peripheral pulses 2+ throughout GI Inspection: Yes normal to inspection Palpation (GI): Soft to palpation, nontender, no guarding, not rigid and No hepatosplenomegaly present Percussion: Yes normal to percussion Auscultation: normal bowel sounds Rectal Exam - Female: deferred General: Yes bladder normal to palpation External Female Exam: No lesion Speculum Exam - Vagina: normal appearance of the vagina, normal palpation, normal vaginal discharge and not erythematous Speculum Exam - Cervix: normal appearance of the cervix and normal palpation Bimanual exam- vagina & uterus: normal bimanual exam, normal palpation, uterine size normal, bladder normal to palpation, consistency normal and normal palpation Bimanual Exam- Adnexa, other: normal adnexae, no masses and no tenderness Results AMB Test Urine AMB Test Urine Negative Last Edit by Geno Butler MA on 11/27/23 12:55 Results Reviewed Results Reviewed: Laboratory Last Values Tst Clinic Negative 11/27/23 12:54 Assessment & Plan Assessment & Plan (1) Abnormal uterine bleeding (AUB): Comment: With anemia Code(s): N93.9 - Abnormal uterine and vaginal bleeding, unspecified Plan: Iron sulfate 325 mg p.o. the IUD Co testing done, GC and chlamydia taken, will order CBC, prolactin, TSH, HCG,. Discussed with the patient the different causes of abnormal bleeding including thyroid disorders, uterine and ovarian pathology. Discussed with the patient the work up including CBC (to r/o anemia), prolactin TSH, hCG. Discussed with the patient the results of the work up done and options of treatment including control pills , Mirena IUD, cyclic Provera. All pros, cons, risks and benefits if each option was discussed with the patient and the patient decided to stay with [facility] so a more detailed discussion re: control pills including mechanism of action, benefits (regular menses, less dysmenorrhea, less risk of ovarian cancer, ...), risks ( DVT, PE, Strokes, [place], ? increased breast ca, others). Instructions were given to schedule a 3 months appointment for blood pressure check (2) Complex cyst of both ovaries: Code(s): N83.291 - Other ovarian cyst, right side; N83.292 - Other ovarian cyst, left side Plan: Discussed with the patient the complex ovarian cyst bilaterally by ultrasound. Discussed with the patient the Ultrasound findings, the main limitation of transvaginal ultrasonography alone as a diagnostic tool to distinguish benign from malignant masses relates to its lack of specificity and low positive predictive value for cancer. The differential diagnosis discussed with the patient includes the following but not limited to: benign and malignant gynecological and non-gynecological causes. Laboratory evaluation include UPT and GC/CT , serum tumor marker CA 125 . Will proceed with MRI of the pelvis with and without contrast and treat accordingly Instructions given the patient to schedule a 2 week follow-up ultrasound appointment. All questions were answered & the patient verbalized understanding and agreed with the plan. (3) Fibroid, uterine: Code(s): D25.9 - Leiomyoma of uterus, unspecified Plan: Discussed with the patient the findings on pelvic ultrasound & the risk of myosarcoma; discussed with the patient the options of treatment including expectant management versus hysterectomy; the pros and cons, risks benefits of each approach were discussed with the patient including the fact that in cases of myosarcoma, surgical treatment can lead to early diagnosis and positively affects the prognosis; after further discussion, the patient decided to proceed with expectant management. Will repeat pelvic ultrasound periodically. Instructions given to patient to call in case any of the following occurs: pressure symptoms, abnormal uterine bleeding, pelvic pain; and to schedule a future office follow-up appointment for reassessment and to order a repeat ultrasound . All questions answered, the patient verbalized understanding and agreed with the plan . Orders: Orders AMB HCG Urine Test Today Z32.02 - Encounter for test, result negative CT NG by PCR Today N93.9 - Abnormal uterine and vaginal bleeding, unspecified Prolactin Today N93.9 - Abnormal uterine and vaginal bleeding, unspecified Pap Smear Today N93.9 - Abnormal uterine and vaginal bleeding, unspecified TSH reflex Free T4 Today N93.9 - Abnormal uterine and vaginal bleeding, unspecified HCG Quantitative Today N93.9 - Abnormal uterine and vaginal bleeding, unspecified Complete Blood Count no Diff Today N93.9 - Abnormal uterine and vaginal bleeding, unspecified MR pelvis wo/w con Today N83.299 - Other ovarian cyst, unspecified side Coding Level of Care Code New Pt Level 3 (22881) Diagnoses Abnormal uterine bleeding (AUB) N93.9 Complex cyst of both ovaries N83.291; N83.292 Fibroid, uterine D25.9
[2023-11-27 12:45] VITALS: BP 122/78; BMI 24.7
== END 2023-11-27 13:27 | disposition home or self-care (01) ==
PROVIDERS: Visit Provider Obstetrics & Gynecology
DX: N93.9 Abnormal uterine and vaginal bleeding, unspecified (principal); N83.291 Other ovarian cyst, right side; N83.292 Other ovarian cyst, left side; D25.9 Leiomyoma of uterus, unspecified; Z32.02 Encounter for pregnancy test, result negative
CPT/HCPCS: 99203

== ENCOUNTER 2023-11-27 13:37 | Outpatient (REF) | payer MEDICAID, SELFPAY ==
[2023-11-27 14:17] LABS: Hematocrit 26.1 % (37.0-47.0); Mean Corpuscular HGB Conc 30.7 g/dl (31.0-35.0); Mean Corpuscular Hemoglobin 18.4 pg (27.0-33.0); Mean Platelet Volume 9.8 fL (9.4-12.3); Platelet Count 556 X10*3/uL (160-400); Red Blood Count 4.35 X10*6/uL (4.20-5.50); Red Cell Distribution Width 19.4 % (11.0-16.0); White Blood Count 8.3 X10*3/uL (4.8-10.8)
[2023-11-27 15:02] LABS: HCG Quantitative < 2 mIU/mL; TSH reflex Free T4 1.23 uIU/mL (0.32-4.0)
[2023-11-28 03:39] LABS: CT PCR NOT DETECTED (Not Detect.); NG PCR NOT DETECTED (Not Detect.)
== END 2023-11-27 13:38 | disposition home or self-care (01) ==
LOC: HO.LAB 13:37
PROVIDERS: Visit Provider Obstetrics & Gynecology
DX: N93.9 Abnormal uterine and vaginal bleeding, unspecified (principal)
CPT/HCPCS: 0353U; 36415; 84146; 84443; 84702; 85027

== ENCOUNTER 2023-12-04 07:36 | Outpatient (REF) | payer MEDICAID, SELFPAY | END 2023-12-04 07:37 | disposition home or self-care (01) | LOC: HO.LAB 07:36 | PROVIDERS: Visit Provider Obstetrics & Gynecology | DX: N93.9 Abnormal uterine and vaginal bleeding, unspecified (principal) | CPT/HCPCS: 36415; 84146 ==

== ENCOUNTER 2023-12-08 14:10 | Outpatient (AMB) | payer MEDICAID, SELFPAY ==
--- NOTE | 2023-12-08 14:10 | MHC.OFFVIS ---
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 Prolactin was 35 on , the patient was given instruction to repeat the test fasting with 3 days of no nipple manipulation, the test was repeated on 12/03 came back at 56. No galactorrhea or blurring of vision or any other concerns except that the patient has frequent headaches. [facility] Medical History Sickle cell anemia Family History Maternal Aunt Breast cancer Female Reproductive History Menstrual Age of Menarche: 11 Review of Systems Const All systems reviewed & are unremarkable except as noted in HPI and below Reports as per HPI and Reports no additional complaints GI Reports no additional complaints Reports no additional complaints Assessment & Plan Assessment & Plan (1) Elevated prolactin level: Code(s): R79.89 - Other specified abnormal findings of blood chemistry Plan: Discussed with the patient the level prolactin on at 35 and on 12/03 at 56. Differential diagnosis discussed with the patient, recommended referral to endocrinology for further management. All questions answered, the patient verbalized understanding. Instructed the patient to call our office back in case a referral appointment is not scheduled, missed or canceled so that we will assist on rescheduling another appointment, the patient verbalized understanding agreed with the plan. I spent a total of 20 minutes reviewing the chart, talking to the patient via video and documenting in the medical record. Orders: Referrals Endocrinology Referral R79.89 - Other specified abnormal findings of blood chemistry Telehealth Telehealth Location of provider rendering services: practice address Location of patient: address on file Patient Identification confirmed using: Name, : Yes Telehealth method: video Patient verbally consented to treatment: Yes Patient verbally consented to billing insurance company: Yes Patient informed of any privacy concerns related to visit: Yes Coding Level of Care Code Tele Est Pt Level 1 (16713) Diagnoses Elevated prolactin level R79.89
== END 2023-12-08 16:25 | disposition home or self-care (01) ==
LOC: HO.HWS 14:10
PROVIDERS: Visit Provider Obstetrics & Gynecology
DX: R79.89 Other specified abnormal findings of blood chemistry (principal)
CPT/HCPCS: 99211

== ENCOUNTER → 2023-12-08 14:10 | Outpatient (BNVA) | payer MEDICAID, SELFPAY | PROVIDERS: Visit Provider Obstetrics & Gynecology ==

== ENCOUNTER 2023-12-30 16:31 | Outpatient (REF) | payer MEDICAID, SELFPAY ==
--- NOTE | ~2023-12-30 | MR_ITS ---
EXAMINATION: MRI PELVIS WITH AND WITHOUT CONTRAST CLINICAL INFORMATION: Reason for Exam N83.299 - Other ovarian cyst, unspecified side COMPARISON: Pelvic ultrasound 11/20/2023 TECHNIQUE: Multiple routine MRI sequences through the pelvis were obtained before and after the uneventful administration of 5.5 mL of Gadavist gadolinium-based IV contrast. FINDINGS: UTERUS: Anteverted uterus is enlarged and measures 11.3 x 10.7 x 8.3 cm ([id number] x anterior-posterior x transverse). Endometrium is uniform and measures 0.5 cm in thickness. Junctional zone is normal in signal and thickness. There are numerous uterine myomas predominantly subserosal or intramural. A 3.4 cm submucosal myoma in the left body of the uterus demonstrates a less than 50% submucosal component. The largest is a 5.8 cm subserosal myoma in the posterior body of the uterus with heterogeneous T2 dark signal and myomas demonstrating predominantly homogeneous enhancement. CERVIX: Nabothian cyst in the cervix. VAGINA: Unremarkable. OVARIES: A 1.6 cm right and 3.1 cm left T2 bright ovarian lesions with some heterogeneous predominantly T2 bright signal compatible with hemorrhagic ovarian cysts, no follow up imaging recommended. KIDNEYS AND VISUALIZED UPPER ABDOMEN: Two normally positioned kidneys are seen. No hydronephrosis. VISUALIZED GI TRACT: Unremarkable. BLADDER: Unremarkable. PELVIC FREE FLUID: Small volume of simple pelvic free fluid. LYMPH NODES: Asymmetric mildly enlarged left inguinal node measuring 1.2 cm short axis, 9:24. OSSEOUS STRUCTURES: No acute or suspicious osseous abnormalities. SOFT TISSUES: There is some asymmetric skin thickening in the soft tissues of the left mons pubis and vulva, 8:28 and 9:28, for which correlation with direct inspection is recommended, and differential considerations could include a focal cellulitis or other dermatologic lesion. MR/MR pelvis wo/w con IMPRESSION: * Bilateral hemorrhagic ovarian cysts corresponding to the sonographic findings, no follow up imaging recommended. * There is some asymmetric skin thickening in the soft tissues of the left mons pubis and vulva, for which correlation with direct inspection is recommended, and differential considerations could include a focal cellulitis or other dermatologic lesion. * Asymmetric mildly enlarged left inguinal node measuring 1.2 cm short axis, for which further workup is recommended on the basis of clinical dermatologic findings in this region, as detailed above, though three-month follow-up ultrasound could be considered. * Enlarged uterus with numerous uterine myomas demonstrating predominantly homogeneous enhancement, the largest measuring 5.8 cm. One myoma measuring 3.4 cm demonstrates a less than 50% submucosal component. * Small volume of simple pelvic free fluid.
[2023-12-30] MEDS: gadobutroL 7.5 ML VIAL IVPUSH (17:43)
== END 2023-12-30 16:32 | disposition home or self-care (01) ==
LOC: HO.MRI 16:31
PROVIDERS: Visit Provider Obstetrics & Gynecology
DX: N83.299 Other ovarian cyst, unspecified side (principal)
CPT/HCPCS: 72197; A9585

== ENCOUNTER 2024-02-03 12:54 | Outpatient (AMB) | payer MEDICAID, SELFPAY ==
[2024-02-03 13:00] VITALS: BP 116/72; BMI 24.6
--- NOTE | 2024-02-03 13:00 | A.OFFVIS_ITS ---
Vital Signs 02/03/24 13:00 Height 5 ft 1 in Weight 130 lb BMI 24.6 BP 116/72 Intake Visit Reasons: 3 month med/MRI follow up Allergies amoxicillin [From Augmentin] Allergy (Verified 02/03/24 13:00) Hives clavulanic acid [From Augmentin] Allergy (Verified 02/03/24 13:00) Hives Is last menstrual period known: Yes Last menstrual period: 01/08/24 HPI Comments Details: Presenting for 3 months ultrasound after starting control pills, doing well with no complaints, no vaginal bleeding. Repeat CBC , CA 125 were not done The following workup was done so far: H&H in the emergency room on was 8/26.1, since then the patient has been on iron sulfate 325 mg p.o. t.i.d. CBC, TSH, hCG negative Prolactin on was 35 repeated on 12/03 was 56, the patient was refer to endocrinology GC/CT negative Co testing negative Pelvic ultrasound on 11/20/2022 showed the following: The uterus is anteverted and measures 10 x 7 x 7 cm. There are at least 5 uterine fibroids. largest fibroids measure 4.8 x 3.6 x 4 cm exophyticto the uterine fundus and 4.2 x 3.6 x 3.4 cm subserosal to the posterior uterine body. The endometrium is normal in thickness measuring 0.5 cm. The right ovary measures 3.8 x 2. 4 x 3.2 cm. There is a 1.3 x 1 x 1 cm hypoechoic lesion in the right ovary. It is uncertain whether this represents a complex cyst or solid lesion. The left ovary measures 3.3 x 2.5 x 2.5 cm. There is a 2.5 x 1.8 x 1.9 cm complex left ovarian cyst with internal echoes. There is no fluid in the pelvis MRI of the pelvis done on 12/30/2023 showed the following: IMPRESSION: * Bilateral hemorrhagic ovarian cysts corresponding to the sonographic findings, no follow up imaging recommended. * There is some asymmetric skin thickening in the soft tissues of the left mons pubis and vulva, for which correlation with direct inspection is recommended, and differential considerations could include a focal cellulitis or other dermatologic lesion. * Asymmetric mildly enlarged left inguinal node measuring 1.2 cm short axis, for which further workup is recommended on the basis of clinical dermatologic findings in this region, as detailed above, though three-month follow-up ultrasound could be considered. * Enlarged uterus with numerous uterine myomas demonstrating predominantly homogeneous enhancement, the largest measuring 5.8 cm. One myoma measuring 3.4 cm demonstrates a less than 50% submucosal component. * Small volume of simple pelvic free fluid. The patient states that her menstrual cycles are regular and light and she gives history of shaving her pubic hair and developing folliculitis on the mons pubis few weeks ago [facility] Medical History Sickle cell anemia Family History Maternal Aunt Breast cancer Female Reproductive History Menstrual Age of Menarche: 11 Date of last menstrual period: 01/08/24 Review of Systems Const All systems reviewed & are unremarkable except as noted in HPI and below Reports as per HPI and Reports no additional complaints GI Reports no additional complaints Reports no additional complaints Physical Exam Skin Other: Folliculitis without evidence of cellulitis or erythema of mons pubis skin Assessment & Plan Assessment & Plan (1) Complex cyst of both ovaries: Code(s): N83.291 - Other ovarian cyst, right side; N83.292 - Other ovarian cyst, left side Category: Medical Plan: Discussed with the patient the finding on MRI showing bilateral hemorrhagic ovarian cyst, recommended repeat ultrasound in 6 weeks ensure resolution of bilateral ovarian cyst. All questions answered, the patient verbalized understanding (2) Abnormal uterine bleeding (AUB): Comment: With anemia Code(s): N93.9 - Abnormal uterine and vaginal bleeding, unspecified Category: Medical Plan: CBC ordered, instructions given the patient to continue iron sulfate 325 mg p.o. q.d. till CBC normalizes and to continue control pills (3) Elevated prolactin level: Code(s): R79.89 - Other specified abnormal findings of blood chemistry Category: Medical Plan: The patient was refer to endocrinology has an appointment on 03/[address] [facility] endocrinology (4) Fibroid, uterine: Code(s): D25.9 - Leiomyoma of uterus, unspecified Category: Medical Plan: Discussed with the patient the findings on pelvic ultrasound & the risk of myosarcoma; discussed with the patient the options of treatment including expectant management versus hysterectomy; the pros and cons, risks benefits of each approach were discussed with the patient including the fact that in cases of myosarcoma, surgical treatment can lead to early diagnosis and positively affects the prognosis; after further discussion, the patient decided to proceed with expectant management. Will repeat pelvic ultrasound periodically. Instructions given to patient to call in case any of the following occurs: pressure symptoms, abnormal uterine bleeding, pelvic pain; and to schedule a 6 weeks ultrasound follow-up appointment . All questions answered, the patient verbalized understanding and agreed with the plan . (5) Folliculitis: Comment: Of mons pubis Code(s): L73.9 - Follicular disorder, unspecified Category: Medical Plan: Discussed with the patient the finding on MRI in the mons pubis area and on physical exam folliculitis, instructions given the patient to stop shaving, and call in case of redness erythema or pain or persistent of her folliculitis then will refer to Dermatology. All questions answered, the patient verbalized understanding Orders: Orders US pelvic and transvaginal Today N83.291 - Other ovarian cyst, right side, N83.292 - Other ovarian cyst, left side, N93.9 - Abnormal uterine and vaginal bleeding, unspecified Complete Blood Count no Diff Today N93.9 - Abnormal uterine and vaginal bleeding, unspecified Coding Level of Care Code Est Pt Level 3 (33621) Diagnoses Complex cyst of both ovaries N83.291; N83.292 Abnormal uterine bleeding (AUB) N93.9 Elevated prolactin level R79.89 Fibroid, uterine D25.9 Folliculitis L73.9
== END 2024-02-03 13:42 | disposition home or self-care (01) ==
PROVIDERS: Visit Provider Obstetrics & Gynecology
DX: N83.291 Other ovarian cyst, right side (principal); N83.292 Other ovarian cyst, left side; N93.9 Abnormal uterine and vaginal bleeding, unspecified; R79.89 Other specified abnormal findings of blood chemistry; D25.9 Leiomyoma of uterus, unspecified; L73.9 Follicular disorder, unspecified
CPT/HCPCS: 99213

== ENCOUNTER 2024-02-03 12:54 | Outpatient (REF) | payer MEDICAID, SELFPAY ==
[2024-02-03 13:53] LABS: Hematocrit 30.9 % (37.0-47.0); Hemoglobin 10.3 g/dl (12.0-16.0); Mean Corpuscular HGB Conc 33.3 g/dl (31.0-35.0); Mean Corpuscular Hemoglobin 23.5 pg (27.0-33.0); Mean Corpuscular Volume 70.5 fL (80.0-98.0); Mean Platelet Volume 9.9 fL (9.4-12.3); Platelet Count 451 X10*3/uL (160-400); Red Blood Count 4.38 X10*6/uL (4.20-5.50); Red Cell Distribution Width 21.2 % (11.0-16.0); White Blood Count 6.1 X10*3/uL (4.8-10.8)
== END 2024-02-03 12:55 | disposition home or self-care (01) ==
LOC: HO.LAB 12:54
PROVIDERS: Visit Provider Obstetrics & Gynecology
DX: N93.9 Abnormal uterine and vaginal bleeding, unspecified (principal); N83.291 Other ovarian cyst, right side; N83.292 Other ovarian cyst, left side; R79.89 Other specified abnormal findings of blood chemistry; D25.9 Leiomyoma of uterus, unspecified; L73.9 Follicular disorder, unspecified
CPT/HCPCS: 36415; 85027; 99212

== ENCOUNTER 2024-03-16 10:55 | Outpatient (REF) | payer MEDICAID, SELFPAY ==
--- NOTE | ~2024-03-16 | US_ITS ---
EXAMINATION: US PELVIS CLINICAL INFORMATION: Complex cysts of both ovaries, abnormal uterine bleeding, last menstrual period March 08, 2024. COMPARISON: MR pelvis December 30, 2023, pelvic ultrasound November 20, 2023. TECHNIQUE: Ultrasound of the pelvis is performed using both transabdominal and transvaginal transducers along with Doppler. Transvaginal imaging is performed due to inadequate visualization transabdominally. FINDINGS: Uterus is anteverted and measures 10.4 x 8.6 x 7.2 cm, volume 337.2 mL. Endometrial thickness is 4 mm. Limited visualization of endometrium due to uterine fibroids. A 5.4 x 4.6 x 4.5 cm fibroid, previously 4.8 x 3.6 x 4.1 cm on 11/20/2023 ultrasound. A 1.4 x 1.3 x 1.3 cm seen only on transvaginal ultrasound images, previously 1.3 x 1.0 x 1.5 cm. A 3.8 x 4.4 x 3.6 cm fibroid, previously 3.2 x 3.2 x 2.0 cm. A 3.7 x 3.8 x 4.4 cm fibroid seen only on transabdominal ultrasound images, previously 3.2 x 3.2 x 3.0 cm. Limited visualization on transvaginal ultrasound images due to multiple large fibroids and bowel gas. Right ovary measures 3.3 x 2.9 x 1.6 cm, volume 8.2 mL. Small amount of free fluid adjacent to the right ovary. Previously identified right ovarian lesion is not visualized today. Right ovary is grossly unremarkable, although visualization is limited due to bowel gas. Left ovary measures 3.2 x 2.7 x 2.5 cm, volume 12.1 mL. Left ovarian 1.7 x 1.6 x 1.7 cm complex cyst with multiple septations and internal echoes, previously measuring 2.5 x 1.8 x 1.9 cm on ultrasound of 11/20/2023. Previous MR demonstrated a 3.1 cm left ovarian cyst felt to be a hemorrhagic cyst. US/US pelvic and transvaginal IMPRESSION: 1. Enlarged, fibroid uterus. 2. Endometrial thickness 4 mm. Limited visualization of endometrium due to multiple fibroids. Correlation with menstrual history and clinical exam recommended to determine further management. 3. Left ovarian 1.7 cm complex cyst previously measured 2.5 cm on 11/20/2023. Previous MR demonstrated a 3.1 cm left ovarian cyst felt to represent a hemorrhagic cyst. There is no specific indication for additional imaging at this time.
== END 2024-03-16 10:56 | disposition home or self-care (01) ==
LOC: HO.US 10:55
PROVIDERS: Visit Provider Obstetrics & Gynecology
DX: N93.9 Abnormal uterine and vaginal bleeding, unspecified (principal); N83.291 Other ovarian cyst, right side; N83.292 Other ovarian cyst, left side
CPT/HCPCS: 76830; 76856

== ENCOUNTER 2024-05-10 11:50 | Outpatient (AMB) | payer MEDICAID, SELFPAY ==
[2024-05-10 11:55] VITALS: BMI 24.2
--- NOTE | 2024-05-10 11:55 | A.OFFVIS_ITS ---
Vital Signs 05/10/24 11:55 Height 5 ft 1 in Weight 127 lb 13.89 oz BMI 24.2 Intake Visit Reasons: Ultrasound results/ DO NOT RS Allergies amoxicillin [From Augmentin] Allergy (Verified 02/03/24 13:00) Hives clavulanic acid [From Augmentin] Allergy (Verified 02/03/24 13:00) Hives HPI Comments Details: Presenting for follow-up ultrasound regarding left complex ovarian cyst was seen on ultrasound in 11/22 followed by pelvic MRI which was consistent with hemorrhagic ovarian cyst. Repeat ultrasound showed the following: Uterus is anteverted and measures 10.4 x 8.6 x 7.2 cm, volume 337.2 mL. Endometrial thickness is 4 mm. Limited visualization of endometrium due to uterine fibroids. A 5.4 x 4.6 x 4.5 cm fibroid, previously 4.8 x 3.6 x 4.1 cm on 11/20/2023 ultrasound. A 1.4 x 1.3 x 1.3 cm seen only on transvaginal ultrasound images, previously 1.3 x 1.0 x 1.5 cm. A 3.8 x 4.4 x 3.6 cm fibroid, previously 3.2 x 3.2 x 2.0 cm. A 3.7 x 3.8 x 4.4 cm fibroid seen only on transabdominal ultrasound images, previously 3.2 x 3.2 x 3.0 cm. Limited visualization on transvaginal ultrasound images due to multiple large fibroids and bowel gas. Right ovary measures 3.3 x 2.9 x 1.6 cm, volume 8.2 mL. Small amount of free fluid adjacent to the right ovary. Previously identified right ovarian lesion is not visualized today. Right ovary is grossly unremarkable, although visualization is limited due to bowel gas. Left ovary measures 3.2 x 2.7 x 2.5 cm, volume 12.1 mL. Left ovarian 1.7 x 1.6 x 1.7 cm complex cyst with multiple septations and internal echoes, previously measuring 2.5 x 1.8 x 1.9 cm on ultrasound of 11/20/2023. Previous MR demonstrated a 3.1 cm left ovarian cyst felt to be a hemorrhagic cyst. The patient is doing well with no complaints on control pills menstrual cycles are regular and light and non crampy, no pelvic pain pressure or bulk symptoms. [facility] Medical History Sickle cell anemia Family History Maternal Aunt Breast cancer Female Reproductive History Menstrual Age of Menarche: 11 Review of Systems Const All systems reviewed & are unremarkable except as noted in HPI and below Reports as per HPI and Reports no additional complaints GI Reports no additional complaints Reports no additional complaints Physical Exam Vital Signs: BMI result Body Mass Index 24.2 Assessment & Plan Assessment & Plan (1) Fibroid, uterine: Code(s): D25.9 - Leiomyoma of uterus, unspecified Category: Medical Plan: Discussed with the patient the findings on pelvic ultrasound & the risk of myosarcoma; discussed with the patient the options of treatment including expectant management versus hysterectomy; the pros and cons, risks benefits of each approach were discussed with the patient including the fact that in cases of myosarcoma, surgical treatment can lead to early diagnosis and positively affects the prognosis; after further discussion, the patient decided to proceed with expectant management. Will repeat pelvic ultrasound periodically. Instructions given to patient to call in case any of the following occurs: pressure symptoms, abnormal uterine bleeding, pelvic pain; and to schedule a 3 months pelvic ultrasound and a follow-up appointment . All questions answered, the patient verbalized understanding and agreed with the plan . (2) Complex cyst of both ovaries: Code(s): N83.291 - Other ovarian cyst, right side; N83.292 - Other ovarian cyst, left side Category: Medical Plan: Discussed with the patient the complex ovarian cyst by ultrasound previously seen by MRI consistent with a hemorrhagic cyst and 3.1 cm in size. Discussed with the patient the Ultrasound findings, the main limitation of transvaginal ultrasonography and MRI as a diagnostic tool to distinguish benign from malignant masses relates to its lack of specificity and low positive predictive value for cancer. The differential diagnosis discussed with the patient includes the following but not limited to: benign and malignant gynecological and non-gynecological causes. Laboratory evaluation include UPT and GC/CT , serum tumor marker CA 125 . Discussed with the patient options of treatment including laparoscopy ovarian cystectomy/oophorectomy vs. expectant management with repeat US in repeating pelvic US in 12 weeks from previous US. If the ovarian complex cyst is persistent larger and / or more complex looking will refer to gynecologic Oncology. All pros, cons, risks and benefits of each approach were discussed with the patient including but not limited to a delay in the diagnosis and treatment of ovarian cancer affecting the prognosis; The patient decided to go ahead with expectant management. Instructions given the patient to schedule a 3 months follow-up ultrasound appointment. All questions were answered & the patient verbalized understanding and agreed with the plan. Orders: Orders US pelvic and transvaginal 3 Months D25.9 - Leiomyoma of uterus, unspecified, N83.291 - Other ovarian cyst, right side, N83.292 - Other ovarian cyst, left side, N83.299 - Other ovarian cyst, unspecified side Medications: Refilled desogestrel-ethinyl estradiol 0.15-0.03 mg (Pradeep) 1 tab PO DAILY 84 tabs 1RF Coding Level of Care Code Est Pt Level 3 (79468) Diagnoses Fibroid, uterine D25.9 Complex cyst of both ovaries N83.291; N83.292
== END 2024-05-10 12:37 | disposition home or self-care (01) ==
PROVIDERS: Visit Provider Obstetrics & Gynecology
DX: D25.9 Leiomyoma of uterus, unspecified (principal); N83.291 Other ovarian cyst, right side; N83.292 Other ovarian cyst, left side
CPT/HCPCS: 99213

== ENCOUNTER → 2024-05-10 11:50 | Outpatient (BNVA) | payer MEDICAID, SELFPAY | PROVIDERS: Visit Provider Obstetrics & Gynecology | DX: N83.291 Other ovarian cyst, right side (principal); N83.292 Other ovarian cyst, left side; D25.9 Leiomyoma of uterus, unspecified | CPT/HCPCS: 99212 ==

== ENCOUNTER 2024-08-10 16:16 | Outpatient (REF) | payer MEDICAID, SELFPAY | END 2024-08-10 16:17 | disposition home or self-care (01) | LOC: HO.US 16:16 | PROVIDERS: PCP Physician Assistant; Visit Provider Obstetrics & Gynecology | DX: D25.9 Leiomyoma of uterus, unspecified (principal); N83.292 Other ovarian cyst, left side; N83.291 Other ovarian cyst, right side | CPT/HCPCS: 76830; 76856 ==

== ENCOUNTER 2024-10-28 15:29 | Outpatient (AMB) | payer MEDICAID, SELFPAY ==
--- NOTE | 2024-10-28 15:37 | A.OFFVIS_ITS ---
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 The patient is doing well with no complaints no abnormal uterine bleeding, pelvic pressure or pain. Pelvic ultrasound done recently showed the following: Uterus: The uterus is anteverted and measures 13.0 x 6.0 x 4.7 cm for a volume of 192 cc. The double wall endometrial thickness is 9 mm. Some fluid is seen in the endometrial canal. Multiple fibroids are present with the largest 3 ranging in size from 3.7 cm to 4.4 cm not significantly changed from prior. Adnexa: Both ovaries are visualized. There is normal color flow to the adnexa. There is no ovarian torsion. There is no pelvic ascites or fluid collection. Right ovary measures 2.8 x 2.6 x 2.1 cm for a volume of 8 cc and contains a 1.6 cm cyst. Left ovary measures 2.4 x 2.2 x 2.7 cm and contains a 1.7 cm cyst PFSH Medical History Sickle cell anemia Family History Maternal Aunt Breast cancer Female Reproductive History Menstrual Age of Menarche: 11 Review of Systems Const All systems reviewed & are unremarkable except as noted in HPI and below Reports as per HPI and Reports no additional complaints GI Reports no additional complaints Reports no additional complaints Assessment & Plan Assessment & Plan (1) Fibroid, uterine: Code(s): D25.9 - Leiomyoma of uterus, unspecified Category: Medical Plan: Discussed with the patient the findings on pelvic ultrasound & the risk of myosarcoma; discussed with the patient the options of treatment including expectant management versus hysterectomy; the pros and cons, risks benefits of each approach were discussed with the patient including the fact that in cases of myosarcoma, surgical treatment can lead to early diagnosis and positively affects the prognosis; after further discussion, the patient decided to proceed with expectant management. Will repeat pelvic ultrasound periodically. Instructions given to patient to call in case any of the following occurs: pressure symptoms, abnormal uterine bleeding, pelvic pain; and to schedule a 12 months pelvic ultrasound (order placed) and a follow-up appointment . All questions answered, the patient verbalized understanding and agreed with the plan . Orders: Orders US pelvic and transvaginal 1 Year D25.9 - Leiomyoma of uterus, unspecified Coding Level of Care Code Est Pt Level 3 (14155) Diagnoses Fibroid, uterine D25.9
--- OUTSIDE RECORDS SUMMARY | 2024-10-28 19:15 | XMS_ITS | Clinical Summary ---
Author Organization [facility] Address [address] [place] [address] Care Team Providers Care Certified Legal Secretary Specialist Name Role Phone Mamta Reid Primary Care Provider [phone] Source Comments PLEASE NOTE, if this patient is a minor, it may be UNLAWFUL to discuss sensitive information that is contained in these records (such as FAMILY PLANNING, MENTAL HEALTH or SUBSTANCE ABUSE) with the minor patient's parent or other person without the patient's specific authorization.[facility] Allergies Active Allergy Reactions Criticality Noted Date Comments Amoxicillin Hives 01/02/2024 Medications FEROSUL 325 mg (65 mg iron) tabletIndication s:Iron deficiency anemia, unspecified iron deficiency anemia type Take 1 Tablet by mouth once daily 90 Tablet 04/15/2024 Active JULEBER 0.15-0.03 mg tabletIndication s:Medication refill Take 1 Tablet by mouth once daily 28 Tablet 2 04/23/2024 Active polyethylene glycol, PEG, 3350 (GLYCOLAX) 17 gram/dose powderIndication s:Iron deficiency anemia, unspecified iron deficiency anemia type Take 17 g by mouth once daily 510 g 1 07/21/2024 Active Active Problems Problem Noted Date Diagnosed Date Iron deficiency anemia 04/15/2024 Microcytic anemia 04/02/2024 Idiopathic scoliosis 01/02/2024 Overview (01/02/2024): Small degree. No prior surgery. Sickle cell disease with crisis ([facility] 2023 Overview (01/02/2024): Has blood transfusion 10-11 years ago Uterine fibroid 01/02/2024 Encounters Date Type Department Care Team Description 08/18/2024 4:20 PM EST Office Visit [facility] [place] [address] Ankit Cruz PA-C Iron deficiency anemia, unspecified iron deficiency anemia type (Primary Dx) 08/18/2024 Travel from Last 3 Months Immunizations Name Administration Dates Next Due MMR (MMR II/Priorix) 02/06/2016 TDAP 02/06/2016 Varicella, Live Vaccine 02/06/2016 Family History Medical History Relation Name Comments Heart attack Father Stroke Father Breast cancer Maternal Aunt Relation Name Status Comments Father Alive Maternal Aunt Mother Alive Social History Tobacco Use Types Packs/Day Years Used Date Smoking Tobacco: Never Smokeless Tobacco: Never Tobacco Cessation:Counseling Given: Not Answered Alcohol Use Standard Drinks/Week Comments Yes 0 (1 standard drink = 0.6 oz pur e alcohol) Rare Social Connections Answer Date Recorded Connectedness 0 06/08/2024 Financial Resource Strain Answer Date R ecorded Financial Resource Strain 0 2023 Stress Answer Date Recorded Stress 0 11/21/2023 Physical Activity Answer Date Recorded Physical Activity 0 11/21/2023 Food Insecurity Answer Date Recorded Food 0 06/24/2024 Transportation Needs Answer Date Record ed Transportation 0 11/21/2023 Housing Stability Answer Date Recorded Housing 0 11/21/2023 Safety and Environment Answer Date Satnam rded Safety 1 01/02/2024 Utilities Answer Date Recorded Utilities 0 11/21/2023 Employment Answer Date Recorded Stress 0 01/02/2024 Comments No Sex and Gender Information Value Date Recorded Sex Assigned at Female 01/20/2024 4:36 AM PDT Legal Sex Female 12:55 PM PST Gender Identity Female 01/20/2024 4:36 AM PDT Sexual Orientation Straight 01/20/2024 4: 36 AM PDT Last Filed Vital Signs Vital Sign Reading Time Taken Comments Blood Pressure 116/78 08/18/2024 4:18 PM EST Pulse 89 08/18/2024 4:18 PM EST Temperature 36.9 ??C (98.5 ??F) 08/18/2024 4:18 PM ES T Respiratory Rate 18 08/18/2024 4:18 PM EST Oxygen Saturation 99% 08/18/2024 4:18 PM EST Inhaled Oxygen Concentration - - Weight 59 kg (130 lb) 08/18/2024 4:18 PM EST Height 154.9 cm (5' 1 ) 08/18/2024 4:18 PM EST Body Mass Index 24.56 08/18/2024 4:18 PM EST Plan of Treatment Health Maintenance Due Date Last Done Comments HPV Screening 1990 Pap Smear 2011 Alcohol and Drug Screen 09/29/2024 03/24/2024 Depression Annual Screen 09/29/2024 03/24/2024 Imm-Hepatitis B (1 of 3 - 19+ 3-dose series) 10/21/2024 Postponed from 2009 (Patient postponement) Imm-Pneumococcal (1 of 2 - PCV) 10/21/2024 Postponed from 1996 (Patient postponement) Relationship Safety Screening/Counseling 01/01/2025 01/02/2024 [id number] () 01/20/2025 Postponed from 05/30/2024 (Patient postponement) Annual Preventive Care Visit 03/24/2025 03/24/2024 Imm-Influenza (#1) 2025 Postponed from 05/30/2024 (Patient postponement) Tobacco Screening 08/18/2025 08/18/2024 Hypertension Screening (#1) 08/18/2027 Cervical Cancer Screening 11/26/2028 Pap + HPV 11/26/2028 11/27/2023 Imm-DTaP/Tdap/Td (3 - Td or Tdap) 03/31/2029 03/31/2019, 02/06/2016 HIV Screening Completed 03/24/2024 Hepatitis C Screening Completed 03/24/2024 Cervical Ablation/Cold-Knife Conization Discontinued Cervical Cryotherapy Discontinued Colposcopy Discontinued Endometrial Biopsy Discontinued Excision/Leep Discontinued HPV Genotyping Discontinued Vaginal Pap Discontinued Vulvoscopy Discontinued Procedures Procedure Name Priority Date/Time Associated Diagnosis Comments IRON, TIBC, FERRITIN PANEL Routine 08/18/2024 4:30 PM EST Iron deficiency anemia, unspecified iron deficiency anemia type BLOOD COUNT COMPLETE AUTO&AUTO DIFRNTL WBC Routine 08/18/2024 4:30 PM EST Iron deficiency anemia, unspecified iron deficiency anemia type IMAGING SCANNED DOCUMENT 08/10/2024 3:00 AM EST IMAGING SCANNED DOCUMENT 08/10/2024 3:00 AM EST HIV 1/2 AG & AB W/RFLX (4TH GEN) Routine 03/24/2024 4:02 PM EDT Screening due HEPATITIS C AB W/RFLX HCV RNA, QT, RT PCR Routine 03/24/2024 4:02 PM EDT Screening due from Last 3 Months or Most Recently Relevant to Health Maintenance Results * (ABNORMAL) IRON, TIBC, FERRITIN PANEL (08/18/2024 4:30 PM EST) Pathologist [facility] FERRITIN 9(L) 16 - 154 ng/mL [facility] IRON, TOTAL 84 40 - 190 mcg/dL [facility] IRON BINDING CAPACITY 553(H) 250 - 450 mcg/dL (calc) [facility] % SATURATION 15(L) 16 - 45 % (calc) [facility] Blood Blood / Unknown 08/18/2024 4 :30 PM EST 08/18/2024 4:30 PM EST Ankit Cruz PA-C LAB - BLOOD DRAW Final Resul t [facility] [address] [address], Crunched [address] [phone] * (ABNORMAL) BLOOD COUNT COMPLETE AUTO&AUTO DIFRNTL WBC (08/18/2024 4:30 PM EST) Pathologist [facility] WHITE BLOOD CELL COUNT 7.1 3.8 - 10.8 Thousand/ uL [facility] RED BLOOD CELL COUNT 4.40 3.80 - 5.10 Million/u L [facility] HEMOGLOBIN 10.7(L) 11.7 - 15.5 g/dL [facility] HEMATOCRIT 34.6(L) 35.0 - 45.0 % [facility] MCV 78.6(L) 80.0 - 100.0 fL [facility] MCH 24.3(L) 27.0 - 33.0 pg [facility] MCHC 30.9(L) 32.0 - 36.0 g/dL [facility] Comment: For adults, a slight decrease in the calculated MCHC value (in the range of 30 to 32 g/dL) is most likely not clinically significant; however, it should be interpreted with caution in correlation with other red cell parameters and the patient's clinical condition. RDW 16.3(H) 11.0 - 15.0 % [facility] PLATELET COUNT 481(H) 140 - 400 Thousand/ uL [facility] MPV 11.3 7.5 - 12.5 fL [facility] ABSOLUTE NEUTROPHILS 4,374 1,500 - 7,800 cells/uL [facility] ABSOLUTE LYMPHOCYTES 2,244 850 - 3,900 cells/uL [facility] ABSOLUTE MONOCYTES 412 200 - 950 cells/uL [facility] ABSOLUTE EOSINOPHILS 43 15 - 500 cells/uL [facility] ABSOLUTE BASOPHILS 28 0 - 200 cells/uL [facility] NEUTROPHILS PCT 61.6 % [facility] [employer] LYMPHOCYTES 31.6 % [facility] MONOCYTES 5.8 % [facility] [employer] [facility] EOSINOPHILS 0.6 % [facility] BASOPHILS 0.4 % [facility] Blood Blood / Unknown 08/18/2024 4 :30 PM EST 08/18/2024 4:30 PM EST us Ankit Cruz PA-C LAB - BLOOD DRAW Edited Resu lt - Final [facility] [address] [address], [facility] [address] [place] [phone] * IMAGING SCANNED DOCUMENT (08/10/2024 3:00 AM EST) Only the most recent of2 resultswithin the time period is included. 08/10/2024 3:00 AM EST us Ankit Cruz PA-C SCAN IMAGING Final Result * HEPATITIS C AB W/RFLX HCV RNA, QT, RT PCR (03/24/2024 4:02 PM EDT) HEPATITIS C ANTIBODY NON-REACT ROLDAN NON-REACT ROLDAN Crunched [facility] Comment: HCV antibody was non-reactive. There is no laboratory evidence of HCV infection. In most cases, no further action is required. However, if recent HCV exposure is suspected, a test for HCV RNA (test code 49715) is suggested. For additional information please refer to http://[employer]/faq/WZK24m4 (This link is being provided for informational/ educational purposes only.) Blood Blood / Unknown 03/24/2024 4 :02 PM EDT 03/24/2024 4:03 PM EDT Mamta OSEI LAB - BLOOD DRAW Final Result [facility]ched [address] [address], Crunched [address] [phone] * HIV 1/2 AG & AB W/RFLX (4TH GEN) (03/24/2024 4:02 PM EDT) Pathologist [facility] HIV AG/AB, 4TH GEN NON-REAC TIVE NON-REAC TIVE [facility] Comment: HIV-1 antigen and HIV-1/HIV-2 antibodies were not detected. There is no laboratory evidence of HIV infection. PLEASE NOTE: This information has been disclosed to you from records whose confidentiality may be protected by state law. ??If your state requires such protection, then the state law prohibits you from making any further disclosure of the information without the specific written consent of the person to whom it pertains, or as otherwise permitted by law. A general authorization for the release of medical or other information is NOT sufficient for this purpose. ?? For additional information please refer to http://[employer]/faq/TAF221 (This link is being provided for informational/ educational purposes only.) The performance of this assay has not been clinically validated in patients less than 2 years old. Blood Blood / Unknown 03/24/2024 4 :02 PM EDT 03/24/2024 4:03 PM EDT us Mamta OSEI LAB - BLOOD DRAW Final Result [facility] [address] [address], [facility] [address] [place] [phone] from Last 3 Months or Most Recently Relevant to Health Maintenance Insurance [facility] [employer] Care Teams Certified Legal Secretary Specialist Relationship Specialty Start Date End Date Mamta Reid PA [address] [place] [address] PCP - General Primary Care 11/21/23
--- OUTSIDE RECORDS SUMMARY | 2024-10-28 19:15 | XMS_ITS | Clinical Summary ---
Author Organization [facility] Address [address] [place] [address] Care Team Providers Care Front Desk Manager Name Role Phone Unavailable Primary Care Provider Unavailabl e Allergies No known active allergies Medications No known medications Social History Tobacco Use Types Packs/Day Years Used Date Smoking Tobacco: Never Smokeless Tobacco: Never Tobacco Cessation:Counseling Given: Not Answered Comments Unknown Sex and Gender Information Value Date Recorded Sex Assigned at Female 07/29/2022 10:16 AM EDT Legal Sex Female 10:16 AM EDT Gender Identity Female 07/29/2022 10:16 AM EDT Sexual Orientation Straight 03/05/2023 3: 39 PM EDT Plan of Treatment Health Maintenance Due Date Last Done Comments Depression Screening 1990 HIV Screening 1990 SDOH Screening 1990 HIB Vaccines (1 of 1 - Risk 1-dose series) 06/01/1991 Meningococcal Vaccine (1 - Risk 2-dose series) 1992 Meningococcal B Vaccine (1 o f 4 - Increased Risk) 2000 Alcohol/Substance Use Screening 2002 Family Planning (PISQ) 2005 Hepatitis C Screening 2008 Hepatitis B Vaccines (1 of 3 - 19+ 3-dose series) 2009 Pneumococcal Vaccine: Pediatrics (0 to 5 Years) and At-Risk Patients (6 to 49) Years) (1 of 2 - PCV) 2009 Pap Smear 2011 Dental Oral Exam 09/18/2019 03/18/2019, 05/28/2012 Dental Prophylaxis 09/18/2019 03/18/2019, 04/15/2017 Cervical Cancer Screening 2020 HPV/Cotest 2020 Dental X-Ray: Bitewings 01/06/2022 01/06/20 21, 03/18/2019, 04/15/2017 Tobacco Screening 02/19/2024 02/18/2023 COVID-19 Vaccine (1 - 2023-2 5 season) 2024 Influenza Vaccine (#1) 2024 Dental X-Ray: Full Mouth 02/19/2026 023, 03/18/2019, 04/15/2017 DTaP/Tdap/Td Vaccines (3 - T d or Tdap) 03/31/2029 03/31/2019, 02/06/2016 Zoster Vaccines (1 of 2) 2040 RSV Patients and Patients Aged 60 years or older (1 - 1-dose 75+ series) 2065 Hepatitis A Vaccines Aged Out 03/31/2019 No long er eligible based on patient's age to complete this topic HPV Vaccines Aged Out No longer eligi ble based on patient's age to complete this topic IPV Vaccines Aged Out No longer eligi ble based on patient's age to complete this topic RSV under 20 months Aged Out No longe r eligible based on patient's age to complete this topic Rotavirus Vaccines Aged Out No longer eligible based on patient's age to complete this topic Procedures Procedure Name Priority Date/Time Associated Diagnosis Comments PANORAMIC RADIOGRAPHIC IMAGE Routine 02/18/2023 3:30 PM EDT BITEWING - SINGLE RADIOGRAPHIC IMAGE Routine 01/05/2021 12:00 AM EDT PROPHYLAXIS - ADULT Routine 03/18/2019 1 2:00 AM EDT PERIODIC ORAL EVALUATION - ESTABLISHED PATIENT Routine 03/18/2019 12:00 AM EDT from Last 3 Months or Most Recently Relevant to Health Maintenance Insurance [facility] C3 DENTAL-[facility] MEDICAID STAND ADULT
--- OUTSIDE RECORDS SUMMARY | 2024-10-28 19:15 | XMS_ITS | Encounter Summary ---
Author Organization [facility] [facility] Address [address] [place] [address] [address] [place] [address] Care Team Providers Care Chair Inspector And Leveler Name Role Phone Unavailable Primary Care Provider Unavailabl e Encounter Details Date Type Department Care Team (Latest Contact Info) Description 03/18/[address] [facility] CONVERSIONS Dental, Provider, DDS Social History Tobacco Use Types Packs/Day Years Used Date Smoking Tobacco: Never Assessed Comments Unknown Sex and Gender Information Value Date Recorded Sex Assigned at Female 07/29/2022 10:16 AM EDT Legal Sex Female 10:16 AM EDT Gender Identity Female 07/29/2022 10:16 AM EDT Sexual Orientation Straight 03/05/2023 3: 39 PM EDT documented as of this encounter Plan of Treatment Not on file documented as of this encounter Visit Diagnoses Not on filedocumented in this encounter
== END 2024-10-28 15:47 | disposition home or self-care (01) ==
LOC: HO.HWS 15:29
PROVIDERS: PCP Physician Assistant; Visit Provider Obstetrics & Gynecology
DX: D25.9 Leiomyoma of uterus, unspecified (principal)
CPT/HCPCS: 99213

== ENCOUNTER → 2024-10-28 15:29 | Outpatient (BNVA) | payer MEDICAID, SELFPAY | PROVIDERS: PCP Physician Assistant; Visit Provider Obstetrics & Gynecology | DX: D25.9 Leiomyoma of uterus, unspecified (principal); Z71.2 Person consulting for explanation of examination or test findings | CPT/HCPCS: 99212 ==

== ENCOUNTER 2024-12-10 14:38 | Emergency (ER) | payer MEDICAID, SELFPAY ==
--- NOTE | 2024-12-10 14:44 | ED_ITS ---
HPI - General Adult General Chief complaint: Abdominal Pain Stated complaint: nausea, Time Seen by Provider: 12/10/24 17:26 Source: patient Mode of arrival: ambulatory Limitations: no limitations History of Present Illness ED Provider: Genia Mason PA-C HPI narrative: Patient is a 34 year old assigned female at with a history of ovarian cysts presenting to the emergency department today with nausea, vomiting, and diarrhea. Patient states that over the last day she has had nausea, vomiting, and diarrhea. Patient states that her brother has had similar symptoms recently. Patient denies any dizziness, lightheadedness, fever, chills, blurry vision, double vision, loss of vision, chest pain, difficulty breathing, shortness of breath, back pain, night sweats, pain with urination, increased urinary frequency, increased urinary urgency, blood in her urine or stool, syncope or a near syncopal episode, recent trauma or falls, bowel incontinence, bladder incontinence, or any other complaints at this time. Onset (ago): day(s) (1) Relieving factors: none Exacerbating factors: none Associated symptoms: nausea/vomiting Treatments prior to arrival: none Related Data Previous Rx's ?Medication ?Instructions ?Recorded ferrous sulfate 324 mg (65 mg 324 mg PO DAILY #90 tabs 11/20/23 iron) tablet,delayed release desogestrel 0.15 mg-ethinyl 1 tab PO DAILY #84 tabs 10/11/24 estradiol 0.03 mg tablet (Pradeep) ondansetron 4 mg disintegrating 4 mg PO Q8H 3 days #9 tabs 12/10/24 tablet Allergies Allergy/AdvReac Type Severity Reaction Status Date / Time amoxicillin [From Augmentin] Allergy Hives Verified 12/10/24 14:47 clavulanic acid Allergy Hives Verified 12/10/24 14:47 [From Augmentin] Review of Systems 2 Constitutional: Constitutional: Reports no additional constitutional complaints, Denies chills, Denies fever(s) and Denies night sweats Eyes: Eyes: Reports no additional eye complaints, Denies blurry vision, Denies change in vision, Denies diplopia, Denies eye discharge, Denies loss of vision and Denies eye pain ENT: Denies dizziness Cardiovascular: Cardiovascular: Reports no additional cardiovascular complaints, Denies chest pain, Denies lightheadedness, Denies Loss of Consciousness and Denies dyspnea Respiratory: Respiratory: Reports no additional respiratory complaints and Denies dyspnea Gastrointestinal: Gastrointestinal: Reports no additional gastrointestinal complaints, Reports abdominal pain, Denies melena, Denies hematochezia, Denies change in bowel habits, Denies change in stool character, Reports diarrhea, Reports nausea and Reports vomiting Genitourinary: Genitourinary: Denies hematuria, Denies urinary frequency, Denies dysuria, Denies urinary incontinence, Denies urinary hesitancy and Denies urinary urgency Musculoskeletal: Musculoskeletal: Reports no additional musculoskeletal complaints, Denies numbness and Denies tingling Neurologic: Denies dizziness, Denies loss of vision, Denies numbness and Denies tingling Psychiatric: Psychiatric: Reports no additional psychiatric complaints Endocrine: Endocrine: Reports no additional endocrine complaints Hematologic/Lymphatic: Hematologic/Lymphatic: Reports no additional hematologic/lymphatic complaints Allergic/Immunologic: Allergic/Immunologic: Reports no additional allergic/immunologic complaints PMFSH Past Medical History Attestation statement: The following information was validated with the patient. Source: old records reviewed and nursing notes reviewed Medical History Sickle cell anemia Family History Family History Maternal Aunt Breast cancer Social History Social History Advance Directives: No Advance Directives Information Provided: No Do you have a plan to hurt others: No Plan Physical Exam ED Vital Signs: Vital Signs - 24 hr 12/10/24 14:46 Temperature 98.8 F Pulse Rate 96 Respiratory Rate 18 Blood Pressure 136/71 Pulse Oximetry 99 Oxygen Delivery Method Room Air BMI result Body Mass Index 23.2 Const General: cooperative, no acute distress, alert and awake Nutritional Appearance: well nourished Orientation/consciousness: patient oriented x3 Limitations: no limitations HENMT Head: Yes normal to inspection and Yes atraumatic Ears: hearing grossly normal bilaterally and external ears normal General nose exam: Normal external nose present, no nasal discharge noted and no epistaxis Face and sinus: Yes normal facial exam, No abrasion and No laceration Mouth: Normal oral and palatal mucosa present, no drooling and no muffled voice Eyes General: appearance normal, both eyes and all related structures Periorbital: periorbital findings normal Eyelids: Yes eyelids normal Conjunctivae: conjunctivae normal Pupils: Equal, round and reactive pupils present EOM: EOMs intact bilaterally Neck Neck: Yes normal visual inspection, Yes full ROM and Yes no lymphadenopathy Chest Chest palpation & inspection: normal inspection of the chest Resp Effort & Inspection: normal respiratory effort and able to speak in complete sentences GI Inspection: Yes normal to inspection Neuro General: patient oriented x3, moves all extremities and CN's II-XI intact bilaterally Cranial nerves: Yes Equal, round and reactive pupils present Cognition (Neuro): normal cognition Extrem General: Yes normal to inspection, Yes full ROM and Yes capillary refill normal Psych Appearance: grossly normal Mental Status: mental status grossly normal Affect: normal affect Attitude: cooperative Thought process: Normal thought process present Thought content: Normal thought content present Insight: Good insight present (Psych) Course Course Course Narrative: This is a rapid medical exam performed by Tiny Malone NP: Additional HPI, ROS, PE not included below will be deferred to primary provider. Patient is a 34-year-old female presenting to the ED with complaint of nausea, vomiting and diarrhea since yesterday. Epigastric discomfort. Brother was sick with similar symptoms. Plan: viral panel, basic labs Medications Administered Discontinued Medications Generic Name Dose Route Start Last Admin Trade Name Freq PRN Reason Stop Dose Admin Ondansetron HCl 4 mg 12/10/24 14:47 12/10/24 14:49 Ondansetron Odt 4 Mg Tab.Rapdis TRANSLINGU 12/10/24 14:48 4 mg ONCE ONE Administration Medical Decision Making Medical Decision Making [facility] Narrative: Patient is a 34 year old assigned female at with a history of ovarian cysts presenting to the emergency department today with nausea, vomiting, and diarrhea. Patient's physical exam was unremarkable. Patient's blood work was unremarkable. Patient's clinical presentation is most consistent with a viral illness. I explained my physical exam findings as well as all test results to the patient. I answered all questions asked by the patient. I stressed the importance of the patient taking her medication as directed (either prescribed or as the over the counter packaging recommends). I stressed the importance of the patient following up with her primary care provider. I stressed the importance of the patient returning to the emergency department immediately if her symptoms were to worsen or if she were to develop any dizziness, shortness of breath, difficulty breathing, chest pain, blurry vision, loss of vision, nausea, vomiting, abdominal pain, fever, chills, back pain, or any other complaints. Patient verbalized agreement and understanding with this treatment plan and discharge. Differential Diagnosis Differential Diagnoses: The differential diagnosis associated with the presentation includes Abdominal pain Nausea Vomiting Gastroenteritis Viral illness Admission/Observation Consideration of admission/observation: Escalation of care including admission/observation considered Patient would have been admitted to the hospital had her work up had any findings where hospital admission was appropriate and her clinical presentation warranted hospital admission. Lab Data [facility] Lab Attestation statement: I reviewed the patient's lab results. My interpretation of these results are in the [facility] Rationale portion of this note. 12/10/24 15:11 12/10/24 15:11 Labs: Lab Results 12/10/24 Range/Units 15:11 WBC 9.3 (4.8-10.8) X10*3/uL RBC 4.63 (4.20-5.50) X10*6/uL Hgb 12.2 (12.0-16.0) g/dl Hct 34.4 L (37.0-47.0) % MCV 74.3 L (80.0-98.0) fL MCH 26.3 L (27.0-33.0) pg MCHC 35.5 H (31.0-35.0) g/dl RDW 17.1 H (11.0-16.0) % Plt Count 416 H (160-400) X10*3/uL MPV 9.7 (9.4-12.3) fL Immature Gran % (Auto) 0.3 (0.0-0.4) % Neut % (Auto) 90.0 H (45-73) % Lymph % (Auto) 5.6 L (20-40) % Trego % (Auto) 4.0 (2-11) % Eos % (Auto) 0.0 (0-4) % Baso % (Auto) 0.1 (0-2) % Lymph # (Auto) 0.5 L (1.2-4.9) X10*3/uL Trego # (Auto) 0.4 (0.1-1.2) X10*3/uL Eos # (Auto) 0.0 (0.0-0.4) X10*3/uL Baso # (Auto) 0.0 (0.0-0.2) X10*3/uL Abs Immat Gran (auto) 0.03 (0.00-0.03) X10*3/uL Absolute Neuts (auto) 8.4 H (2.0-8.3) x10*3/uL Absolute Nucleated RBC 0.000 (0.0-0.012) X10*3/uL Nucleated RBC % (auto) 0.0 (0.0-0.2) /100WBC Sodium 142 (135-145) mmol/L Potassium 3.5 (3.3-5.1) mmol/L Chloride 107 (96-108) mmol/L Carbon Dioxide 25 (22-29) mmol/L Anion Gap 14 (12-20) BUN 10 (9-16) mg/dL Creatinine 0.70 (0.5-1.4) mg/dL Estim Creat Clear Calc 85.4 Estimated GFR > 60 Random Glucose 113 (60-115) mg/dL Calcium 9.5 (8.4-10.2) mg/dL Total Bilirubin 0.4 (0.0-1.0) mg/dL AST 26 (5-31) U/L ALT 15 (0-31) U/L Alkaline Phosphatase 60 (39-117) U/L Total Protein 8.1 H (6.5-8.0) g/dL Albumin 4.2 (3.5-5.0) g/dL Influenza Type A (PCR) NEGATIVE (Negative) Influenza Type B (PCR) NEGATIVE (Negative) RSV RNA Qual (PCR) NEGATIVE (Negative) SARS-CoV-2 RNA (RT-PCR) NEGATIVE (Negative) Discharge Plan Discharge Clinical Impression: Nausea & vomiting Patient Disposition: Home, Self-Care Instructions: Acute Nausea and Vomiting (ED) Additional Instructions: Your work up today was reassuring. Be sure to stay hydrated with water and electrolyte containing beverages such as sugar free Gatorade. Follow up with your primary care provider. Return to the emergency department immediately if your symptoms worsen or if you develop any numbness, tingling, dizziness, shortness of breath, difficulty breathing, chest pain, blurry vision, loss of vision, nausea, vomiting, abdominal pain, fever, chills, back pain, or any other complaints. Please see the information below about our Patient Portal. If you are not yet enrolled in the [facility] Patient Portal, you will receive an enrollment email invitation following your visit to any [facility] setting. You may also self-enroll in the Patient Portal by visiting our website: [email or web address] The following information is required to access the Patient Portal: - Your [facility] Medical Record Number - Your personal home email address (must match what is in your electronic medical record, Registration staff can assist with this) - Name - Date of Capabilities of the Patient Portal: - Message some providers - View upcoming appointments - Access your health summary, medical history, and visit history - View current conditions and allergies - View procedure and lab results - View your medications, including guidelines, side effects, and precautions - Complete pre-appointment questionnaires requested by your provider - Ready summary reports of your office visits and procedures To access the Patient Portal Mobile [employer], follow these directions: - Search [employer] in the [employer] Store or [employer] Store - Download the Quentin - Search for [facility] - Enter your login/password Prescriptions: New ondansetron 4 mg tablet,disintegrating 4 mg PO Q8H 3 Days Qty: 9 0RF No Action desogestrel-ethinyl estradiol [Pradeep] 0.15-0.03 mg tablet 1 tab PO DAILY Qty: 84 1RF ferrous sulfate 324 mg (65 mg iron) tablet,delayed release (DR/EC) 324 mg PO DAILY Qty: 90 0RF Referrals: [facility] Family Medicine [Provider Group] (Call to establish and follow up with a primary care provider. If you already have a primary care provider, please follow up with them.) [facility] Primary CareAvril [Provider Group] (Call to establish and follow up with a primary care provider. If you already have a primary care provider, please follow up with them.) [facility] Primary CareFrancia [Provider Group] (Call to establish and follow up with a primary care provider. If you already have a primary care provider, please follow up with them.) [facility] Primary Care, Dontae Menjivar [Provider Group] (Call to establish and follow up with a primary care provider. If you already have a primary care provider, please follow up with them.) Stand Alone Forms: Work/School Release Discharge Date/Time: 12/10/24 17:48 Print Language: Austrian
[2024-12-10 14:46] VITALS: BP 136/71; PULSE 96; RESP 18; TEMP 37.1; O2SAT 99; BMI 23.2
[2024-12-10] MEDS: Ondansetron ODT 4 MG TAB.RAPDIS TRANSLINGU (14:49)
[2024-12-10 15:15] LABS: MANUAL DIFF FLAG NO
[2024-12-10 15:16] LABS: Basophils Percent Auto 0.1 % (0-2); Hematocrit 34.4 % (37.0-47.0); Hemoglobin 12.2 g/dl (12.0-16.0); Imm Gran Abs Auto 0.03 X10*3/uL (0.00-0.03); Imm Gran Pct Auto 0.3 % (0.0-0.4); Lymphocytes Absolute Auto 0.5 X10*3/uL (1.2-4.9); Lymphocytes Percent Auto 5.6 % (20-40); Mean Corpuscular HGB Conc 35.5 g/dl (31.0-35.0); Mean Corpuscular Hemoglobin 26.3 pg (27.0-33.0); Mean Corpuscular Volume 74.3 fL (80.0-98.0); Mean Platelet Volume 9.7 fL (9.4-12.3); Monocytes Absolute Auto 0.4 X10*3/uL (0.1-1.2); Neutrophils Absolute Auto 8.4 x10*3/uL (2.0-8.3); Platelet Count 416 X10*3/uL (160-400); Red Blood Count 4.63 X10*6/uL (4.20-5.50); Red Cell Distribution Width 17.1 % (11.0-16.0); White Blood Count 9.3 X10*3/uL (4.8-10.8)
[2024-12-10 15:46] LABS: Alanine Aminotransferase 15 U/L (0-31); Albumin Level 4.2 g/dL (3.5-5.0); Anion Gap 14 (12-20); Aspartate Amino Transferase 26 U/L (5-31); Bilirubin Total 0.4 mg/dL (0.0-1.0); Blood Urea Nitrogen 10 mg/dL (9-16); Calcium 9.5 mg/dL (8.4-10.2); Carbon Dioxide 25 mmol/L (22-29); Chloride 107 mmol/L (96-108); Creatinine Clr Calc Pharmacy 85.4; Estimated Glomerular Filt Rate > 60; Glucose Random 113 mg/dL (60-115); Potassium 3.5 mmol/L (3.3-5.1); Sodium 142 mmol/L (135-145); Total Protein 8.1 g/dL (6.5-8.0)
[2024-12-10 15:53] LABS: Influenza A PCR NEGATIVE (Negative); Influenza B PCR NEGATIVE (Negative); Resp Syncy Virus RNA Qual PCR NEGATIVE (Negative); SARS COV2 PCR INHOUSE NEGATIVE (Negative)
[2024-12-10 16:15] LABS: Alkaline Phosphatase 60 U/L (39-117)
--- OUTSIDE RECORDS SUMMARY | 2024-12-10 17:31 | XMS_ITS | Encounter Summary ---
Author Organization [employer] Address [address] [place] [address] [address] [place] [address] Care Team Providers Care Accident Report Clerk Name Role Phone Unavailable Primary Care Provider Unavailabl e Encounter Details Date Type Department Care Team (Latest Contact Info) Description 03/18/2019 Abstract [facility] CONVERSIONS Dental, Provider, DDS Social History Tobacco [...]
--- OUTSIDE RECORDS SUMMARY | 2024-12-10 17:31 | XMS_ITS | Clinical Summary ---
Author Organization [facility] Address [address] [place] [address] Care Team Providers Care Work Car Operator Name Role Phone Mamta Reid Primary Care Provider [phone] Source Comments PLEASE NOTE, if this patient [...] prior surgery. Sickle cell disease with crisis ([facility]) 2023 Overview (01/02/2024): Has blood transfusion 10-11 years ago Uterine fibroid 01/02/2024 Immunizations Name Administration Dates Next Due MMR [...] Date Last Done Comments HPV Screening 1990 Imm-Hepatitis B (1 of 3 - 19+ 3-dose series) 2009 Imm-Pneumococcal (1 of 2 - PCV) 2009 Pap Smear 2011 Alcohol and Drug Screen 09/29/2024 03/24/2024 Depression Annual Screen 09/29/2024 03/24/2024 Relationship Safety Screening/Counseling 01/01/2025 01/02/2024 [id number] ( - season) 2025 Postponed from 05/30/2024 (Patient postponement) Annual Preventive [...] Procedure Name Priority Date/Time Associated Diagnosis Comments REFERRAL SCANNED DOCUMENT 10/28/2024 3:00 AM EST HIV 1/2 AG & AB W/RFLX (4TH GEN) Routine 03/24/2024 4:02 PM EDT Screening due HEPATITIS C AB W/RFLX HCV RNA, QT, RT PCR Routine 03/24/2024 4:02 PM EDT Screening due from Last 3 Months or Most Recently Relevant to Health Maintenance Results * REFERRAL SCANNED DOCUMENT (10/28/2024 3:00 AM EST) 10/28/2024 3:00 AM EST us Ankit Cruz PA-C SCAN REFERRAL Final Result * HEPATITIS C AB W/RFLX HCV RNA, QT, RT PCR (03/24/2024 4:02 PM EDT) HEPATITIS C ANTIBODY NON-REACT ROLDAN NON-REACT ROLDAN Sun Number Comment: HCV antibody was non-reactive. There is no laboratory evidence of HCV infection. In most cases, no further action is required. However, if recent HCV exposure is suspected, a test for HCV RNA (test code 97954) is suggested. For additional information please refer to [email or web address] (This link is being provided for informational/ educational purposes only.) Blood Blood / Unknown 03/24/2024 4 :02 PM EDT 03/24/2024 4:03 PM EDT Mamta OSEI LAB - BLOOD DRAW Final Result [employer] [address] [place] [id number], [employer] [address] [id number] * HIV 1/2 AG & AB W/RFLX (4TH GEN) (03/24/2024 4:02 PM EDT) Pathologist [facility] HIV AG/AB, 4TH GEN NON-REAC TIVE NON-REAC TIVE Sun Number Comment: HIV-1 antigen and HIV-1/HIV-2 antibodies were [...] ?? For additional information please refer to http://[email or web address] (This link is being provided for informational/ educational purposes only.) The performance of this assay has not been clinically validated in patients less than 2 years old. Blood Blood / Unknown 03/24/2024 4 :02 PM EDT 03/24/2024 4:03 PM EDT us Mamta OSEI [facility] - BLOOD DRAW Final Result [facility] [address] [address], [employer] [facility] [address] [place] [address] from Last 3 Months or Most Recently Relevant to Health Maintenance Insurance [facility] [employer] Care Teams Work Car Operator Relationship Specialty Start Date End Date Mamta Reid PA [address] [place] [address] PCP - General Primary Care 11/21/23
--- NOTE | 2024-12-10 17:47 | PC.NURSE ---
PT WAS SEEN AND DISCHARGED BY PROVIDER FROM
== END 2024-12-10 17:48 | disposition home or self-care (01) ==
PROVIDERS: Registered Nurse Emergency; Emergency Provider Emergency Medicine; PCP Student in an Organized Health Care Education/Training Program
DX: R11.2 Nausea with vomiting, unspecified (principal); R19.7 Diarrhea, unspecified; R10.13 Epigastric pain; Z03.818 Encounter for observation for suspected exposure to other biological agents ruled out
CPT/HCPCS: 0241U; 80053; 85025; 99281; 99283